=== PATIENT | male | born 1955 | race Caucasian/White ===

== ENCOUNTER 2021-08-18 12:33 | Emergency (ER) | payer BC ==
[2021-08-18] MEDS ORDERED: Zofran 4 MG/2 ML VIAL IV ONE (12:57)
[2021-08-18] MEDS ORDERED: MORPHINE SULFATE 4 MG INJ IV ONE (12:57)
[2021-08-18] MEDS ORDERED: Zofran 4 MG/2 ML VIAL ONE (13:15)
[2021-08-18] MEDS ORDERED: MORPHINE SULFATE 4 MG INJ ONE (13:16)
[2021-08-18 13:21] LABS: Absolute Neutrophil Ct (ANC) 4.14 (1.4-6.9); Basophil (Absolute #) 0.02 (0-0.4); Eosinophil % 2.3 % (0.00-5.0); Eosinophil (Absolute #) 0.17 (0-0.5); Hemoglobin 14.9 gm/dl (12.5-18.0); Lymphocyte (Absolute #) 2.25 (1.0-4.6); Lymphocytes % 30.9 % (24.0-44.0); Mean Cell Volume 89.5 fl (78-100); Mean Corpuscular Hemoglobin 29.6 pg (26-32); Mean Corpuscular Hgb Concent. 33.1 g/dl (32-36); Mean Platelet Volume 10.6 fl (7.5-11.0); Monocyte (Absolute #) 0.69 (0.0-1.3); Monocytes % 9.5 % (0.0-12.0); Platelet Count 324 K/mm3 (150-450); Red Blood Count 5.03 M/mm3 (4.1-5.6); Red Cell Distribution Width 13.4 % (11.5-14.0); White Blood Count 7.3 K/mm3 (4.0-10.5)
[2021-08-18 13:42] LABS: ALBUMIN 4.1 g/dL (3.5-5.0); ALKALINE PHOSPHATASE 72 U/L (38-126); ANION GAP 12.1 MEQ/L (5-15); BLOOD UREA NITROGEN 23 mg/dL (9-20); CHLORIDE 105 mmol/L (98-107); CK-Creatinine Phosphokinase 46 U/L (55-170); Calcium 9.3 mg/dL (8.4-10.2); Carbon Dioxide 24 mmol/L (22-30); Creatinine 1 0.94 mg/dL (0.66-1.25); EST GLOMERULAR FILTRATION RATE > 60.0 ML/MIN; Glucose 97 mg/dL (74-106); NT PRO BNP 47.2 pg/mL (0-900); Potassium 4.5 mmol/L (3.5-5.1); SGOT/AST 33 U/L (17-59); SGPT/ALT 23 U/L (0-50); SODIUM 137 mmol/L (137-145)
[2021-08-18] MEDS ORDERED: TYLENOL EXTRA STRENGTH 500 MG ONE (14:16)
[2021-08-18] MEDS ORDERED: TYLENOL EXTRA STRENGTH 500 MG PO STA (14:17)
--- NOTE | 2021-08-18 15:09 | ERPHSYRPT ---
- History of Present Illness Time Seen by Provider: 08/18/21 12:35 Historian: patient Exam Limitations: no limitations Patient Subjective Stated Complaint: pt reports sharp right side rib pain starting on 08/13/21 reports 08/12 he got his covid booster and the next day is when his pain started. reports pain is worse when he takes a deep breath, pt denies any injury or accident. Triage Nursing Assessment: pt is aox3, pupils perrl, afebrile, pt is short of breath at rest, pt appears anxious, pt lung sounds diminished bilat, especially to the right mid and upper lung marshall posteriorly, upon visual inspection of the back there appears to be some swelling to the right lateral posterior mid rib area, skin is soft with palpation, pt radial pulses strong and equal, cap refill < 3 seconds, pt skin pink warm dry. Physician History: 66 years old male with history of tobacco abuse, COPD presented in the ER with chief complaint of right lateral chest wall/rib pain for the last 5 days. Patient reports he received booster shot of COVID-19 and next morning woke up with not feeling well and felt pain on the right chest off-and-on, intermittent, will moderate to severe intensity, lasting for a few seconds to 15 minutes, more with deep breathing and moving in a certain position with minimal shortness of breath at times. No fever or chills reported. Timing/Duration: day(s) (5), intermittent, gradual onset, worse Activities at Onset: rest Quality: sharpness Location: other (Right lateral chest wall) Chest Pain Radiation: no radiation Severity of Pain-Max: moderate Severity of Pain-Current: mild Associated Symptoms: No palpitations, No heartburn, No shortness of breath Prior Chest Pain/Cardiac Workup: no prior chest pain, no prior cardiac workup Nitro Today/Relief: no nitro taken today Aspirin Treatment Today: no aspirin today Allergies/Adverse Reactions: alcohol Allergy (Mild, Verified 08/18/21 12:53) black out- pancreatitis- very ill codeine Allergy (Verified 08/18/21 12:53) itching, swelling, very irritated Home Medications: Tamsulosin HCl 0.4 mg [Flomax 0.4 MG] 0.4 mg PO DAILY 04/09/16 [History] Hx Tetanus, Diphtheria Vaccination/Date Given: Yes Hx Influenza Vaccination/Date Given: No Hx Pneumococcal Vaccination/Date Given: No Immunizations Up to Date: Yes Travel Risk - International Travel Have you traveled outside of the country in past 3 weeks: No - Coronavirus Screening Symptoms: Shortness of Breath Close contact with a COVID-19 positive Pt in past 14-21 Days: No - Vaccine Status Have you recieved a Covid-19 vaccination: Yes Trophy Assembler: Moderna - Vaccination Dates Date of 2cond Vaccination (if applicable): unk - Review of Systems Constitutional: No Symptoms Eyes: No Symptoms Ears, Nose, & Throat: No Symptoms Respiratory: Cough Cardiac: Chest Pain Abdominal/Gastrointestinal: No Symptoms Genitourinary Symptoms: No Symptoms Musculoskeletal: No Symptoms Skin: No Symptoms Neurological: No Symptoms Psychological: No Symptoms Endocrine: No Symptoms Hematologic/Lymphatic: No Symptoms Immunological/Allergic: No Symptoms - Past Medical History Pertinent Past Medical History: Yes Neurological History: No Pertinent History ENT History: No Pertinent History Cardiac History: No Pertinent History Respiratory History: No Pertinent History Endocrine Medical History: No Pertinent History Musculoskeletal History: No Pertinent History GI Medical History: No Pertinent History History: No Pertinent History Psycho-Social History: No Pertinent History Male Reproductive Disorders: Prostate Problems, Other Other Medical History: prostate issues - Past Surgical History Past Surgical History: No Neuro Surgical History: No Pertinent History Cardiac: No Pertinent History Respiratory: No Pertinent History Gastrointestinal: No Pertinent History Genitourinary: No Pertinent History Musculoskeletal: No Pertinent History Male Surgical History: No Pertinent History - Social History Smoking Status: Current every day smoker How long have you smoked: 45 years Exposure to second hand smoke: No Drug Use: none Patient Lives Alone: No - Nursing Vital Signs Nursing Vital Signs: Initial Vital Signs Temperature 97.7 F 08/18/21 12:39 Pulse Rate 71 08/18/21 12:39 Respiratory Rate 22 08/18/21 12:39 Blood Pressure 182/112 08/18/21 12:39 O2 Sat by Pulse Oximetry 99 08/18/21 12:39 Pain Scale Pain Intensity 4 - Physical Exam General Appearance: no apparent distress, alert Eye Exam: PERRL/EOMI Ears, Nose, Throat Exam: normal ENT inspection, TMs normal Neck Exam: normal inspection, non-tender, supple, full range of motion Respiratory Exam: diminished breath sounds Cardiovascular Exam: regular rate/rhythm, normal heart sounds, other (Right mid lateral chest wall tenderness with no crepitus.) Back Exam: normal inspection, normal range of motion Extremity Exam: normal inspection, normal range of motion Neurologic Exam: alert, oriented x 3, cooperative SpO2 Interpretation: normal SpO2: 96 O2 Delivery: Room Air - Course EKG Interpreted by Me: RATE ([id number]), Sinus Rhythm, NORMAL AXIS, NORMAL INTERVALS, NORMAL QRS Ordered Tests: Active Orders 24 hr Category Date Time Status Product Development Assistant STAT Care 08/18/21 12:58 Active EKG-ER Only STAT Care 08/18/21 12:57 Active IV Insertion STAT Care 08/18/21 12:57 Active CHEST WITH CONTRAST [CT] Stat Exams 08/18/21 14:31 Taken CBC W DIFF Stat Lab 08/18/21 13:18 Completed CK-Creatinine Phosphokinase Stat Lab 08/18/21 13:18 Completed CMP Stat Lab 08/18/21 13:18 Completed Lactic Acid Stat Lab 08/18/21 12:59 Completed MAG [MAGNESIUM] Stat Lab 08/18/21 13:18 Completed NT PRO BNP Stat Lab 08/18/21 13:18 Completed TROPONIN Q3H Lab 08/18/21 13:18 Completed TROPONIN Q3H Lab 08/18/21 16:00 Ordered TROPONIN Q3H Lab 08/18/21 19:00 Ordered TROPONIN Q3H Lab 08/18/21 22:00 Ordered TROPONIN Q3H Lab 08/19/21 01:00 Ordered Medication Summary Discontinued Medications Generic Name Dose Route Start Last Admin Trade Name Dangelo PRN Reason Stop Dose Admin Acetaminophen 1,000 mg 08/18/21 14:17 08/18/21 14:17 Acetaminophen 500 Mg Tablet PO 08/18/21 14:18 1,000 mg STAT STA Administration Acetaminophen Confirm 08/18/21 14:16 Acetaminophen 500 Mg Tablet Administered 08/18/21 14:17 Dose 1,000 mg .ROUTE .STK-MED ONE Morphine Sulfate 4 mg 08/18/21 12:57 08/18/21 13:20 Morphine Sulfate 4 Mg/Ml Injection IV 08/18/21 12:58 Not Given STAT ONE Morphine Sulfate Confirm 08/18/21 13:16 Morphine Sulfate 4 Mg/Ml Injection Administered 08/18/21 13:17 Dose 4 mg .ROUTE .STK-MED ONE Ondansetron HCl 4 mg 08/18/21 12:57 08/18/21 13:20 Ondansetron Hcl 4 Mg/2 Ml Vial IV 08/18/21 12:58 Not Given STAT ONE Ondansetron HCl Confirm 08/18/21 13:15 Ondansetron Hcl 4 Mg/2 Ml Vial Administered 08/18/21 13:16 Dose 4 mg .ROUTE .STK-MED ONE Lab/Rad Data: Laboratory Result Diagrams 08/18/21 13:18 08/18/21 13:18 Laboratory Results 08/18/21 08/18/21 08/18/21 Range/Units 13:18 13:18 13:18 WBC (4.0-10.5) K/mm3 RBC (4.1-5.6) M/mm3 Hgb (12.5-18.0) gm/dl Hct (42-50) % MCV (78-100) fl MCH (26-32) pg MCHC (32-36) g/dl RDW (11.5-14.0) % Plt Count (150-450) K/mm3 MPV (7.5-11.0) fl Gran % (36.0-66.0) % Eos # (Auto) (0-0.5) Absolute Lymphs (auto) (1.0-4.6) Absolute Monos (auto) (0.0-1.3) Lymphocytes % (24.0-44.0) % Monocytes % (0.0-12.0) % Eosinophils % (0.00-5.0) % Basophils % (0.0-0.4) % Absolute Granulocytes (1.4-6.9) Basophils # (0-0.4) Sodium 137 (137-145) mmol/L Potassium 4.5 (3.5-5.1) mmol/L Chloride 105 (98-107) mmol/L Carbon Dioxide 24 (22-30) mmol/L Anion Gap 12.1 (5-15) MEQ/L BUN 23 H (9-20) mg/dL Creatinine 0.94 (0.66-1.25) mg/dL Estimated GFR > 60.0 ML/MIN Glucose 97 (74-106) mg/dL Lactic Acid (0.4-2.0) Calcium 9.3 (8.4-10.2) mg/dL Magnesium 2.0 (1.6-2.3) mg/dL Total Bilirubin 0.80 (0.2-1.3) mg/dL AST 33 (17-59) U/L ALT 23 (0-50) U/L Alkaline Phosphatase 72 (38-126) U/L Creatine Kinase 46 L (55-170) U/L Troponin I < 0.012 (0.000-0.034) ng/mL NT-Pro-B Natriuret Pep 47.2 (0-900) pg/mL Serum Total Protein 7.0 (6.3-8.2) g/dL Albumin 4.1 (3.5-5.0) g/dL 08/18/21 08/18/21 Range/Units 13:18 12:59 WBC 7.3 (4.0-10.5) K/mm3 RBC 5.03 (4.1-5.6) M/mm3 Hgb 14.9 (12.5-18.0) gm/dl Hct 45.0 (42-50) % MCV 89.5 (78-100) fl MCH 29.6 (26-32) pg MCHC 33.1 (32-36) g/dl RDW 13.4 (11.5-14.0) % Plt Count 324 (150-450) K/mm3 MPV 10.6 (7.5-11.0) fl Gran % 57.0 (36.0-66.0) % Eos # (Auto) 0.17 (0-0.5) Absolute Lymphs (auto) 2.25 (1.0-4.6) Absolute Monos (auto) 0.69 (0.0-1.3) Lymphocytes % 30.9 (24.0-44.0) % Monocytes % 9.5 (0.0-12.0) % Eosinophils % 2.3 (0.00-5.0) % Basophils % 0.3 (0.0-0.4) % Absolute Granulocytes 4.14 (1.4-6.9) Basophils # 0.02 (0-0.4) Sodium (137-145) mmol/L Potassium (3.5-5.1) mmol/L Chloride (98-107) mmol/L Carbon Dioxide (22-30) mmol/L Anion Gap (5-15) MEQ/L BUN (9-20) mg/dL Creatinine (0.66-1.25) mg/dL Estimated GFR ML/MIN Glucose (74-106) mg/dL Lactic Acid 1.2 (0.4-2.0) Calcium (8.4-10.2) mg/dL Magnesium (1.6-2.3) mg/dL Total Bilirubin (0.2-1.3) mg/dL AST (17-59) U/L ALT (0-50) U/L Alkaline Phosphatase (38-126) U/L Creatine Kinase (55-170) U/L Troponin I (0.000-0.034) ng/mL NT-Pro-B Natriuret Pep (0-900) pg/mL Serum Total Protein (6.3-8.2) g/dL Albumin (3.5-5.0) g/dL - Progress Progress: improved Air Movement: good Progress Note: 08/18/21 16:12 He is given symptomatic treatment pain after breathing treatment, on reevaluation feeling better. Patient is maintaining oxygen saturation at room air around 97%. Not in any distress at all. Does have some wheezing which is part of the COPD and smoking. Has normal white count, grossly unremarkable chemistries and I have obtained CTA chest which is negative. Patient pain is more on the right lateral chest wall area/lung, does not seem cardiac in nature at all and do not think needs second troponin or any other work-up. Do not know the exact cause of his pain, could be pleuritic/musculoskeletal. Recommended Tylenol ibuprofen and recommended outpatient follow-up. Discussed signs s ymptoms of worsening needing return to ER which he seems understanding. Blood Culture(s) Obtained: No Antibiotics given: No Counseled pt/family regarding: lab results, diagnosis, need for follow-up, rad results - Departure Departure Disposition: Home Clinical Impression: Right-sided chest pain Condition: Stable Critical Care Time: No Referrals: LENNOX GRAVES MD [Primary Care Provider] - Follow up/PCP as directed (In 2 days for reevaluation) Instructions: Bruised Rib Additional Instructions: Take Tylenol/ibuprofen as needed. Do not smoke. Use inhaler as needed. Follow-up with primary care for reevaluation. Return to ER for worsening pain or if having difficulty breathing etc. Prescriptions: Albuterol 8 gm Mdi Hfa [Ventolin Hfa MDI] 8 gm IH Q4H #1 inh
[2021-08-18 16:27] VITALS: BP 136/80; PULSE 74; O2SAT 99
--- NOTE | 2021-08-18 18:37 | XRAY ---
Indication: Short of breath and chest pain following Covid 19 vaccination. Multiple contiguous axial images obtained through the chest using 80 cc Isovue 370 contrast and PE protocol. Comparison: None There is good opacification of the pulmonary arteries to include the lobar and segmental branches. No pulmonary embolus. Heart not enlarged. Aorta is minimally arteriosclerotic without aneurysm/dissection. Tiny right hilar and subcarinal calcified nodes. No pathologic mediastinal/hilar lymphadenopathy. Lungs demonstrates moderate diffuse pulmonary emphysema with scattered tiny bilateral calcified granulomas as scattered peripheral fibrosis/scarring. No infiltrate, consolidation, or effusion. Bony thorax intact with minimal degenerative changes throughout the spine.. Limited upper abdomen unremarkable. Impression: 1. Negative pulmonary embolus. No acute cardiopulmonary abnormalities. 2. Pulmonary emphysema, scattered fibrosis/scarring, and old granulomatous disease. Comment: Preliminary interpretation made by C. No critical discrepancy.
== END 2021-08-18 16:26 | disposition home or self-care (01) ==
LOC: ED 12:33
DX: R07.89 Other chest pain (principal); J44.9 Chronic obstructive pulmonary disease, unspecified; Z72.0 Tobacco use
CPT/HCPCS: 36000; 36415; 71260; 80053; 82550; 83605; 83735; 83880; 84484; 85025; 93005; 93041; 99284; J2270; J2405; A9270-GY

== ENCOUNTER 2023-05-27 11:55 | Emergency (ER) | payer BC, MEDICARE ==
[2023-05-27 12:25] VITALS: TEMP 98.4
[2023-05-27 13:48] LABS: Absolute Neutrophil Ct (ANC) 6.88 x10^3/uL (1.4-6.9); BASOPHIL % 0.8 % (0.0-0.4); Basophil (Absolute #) 0.07 x10^3/uL (0-0.4); Eosinophil (Absolute #) 0 x10^3/uL (0-0.5); Hematocrit 43.2 % (42-50); Hemoglobin 14.3 g/dL (12.5-18.0); IMMATURE GRAN # 0.02 x10^3u/L (0.00-0.03); IMMATURE GRAN % 0.2 % (0.00-0.4); Lymphocyte (Absolute #) 1.08 x10^3/uL (1.0-4.6); Lymphocytes % 12.7 % (24.0-44.0); Mean Cell Volume 90.2 fL (78-100); Mean Corpuscular Hemoglobin 29.9 pg (26-32); Mean Corpuscular Hgb Concent. 33.1 g/dL (32-36); Mean Platelet Volume 10.1 fL (7.5-11.0); Monocyte (Absolute #) 0.44 x10^3/uL (0.0-1.3); Monocytes % 5.2 % (0.0-12.0); Neutrophil % 81.1 % (36.0-66.0); Platelet Count 318 x10^3/uL (150-450); Red Blood Count 4.79 x10^6/uL (4.1-5.6); Red Cell Distribution Width 12.9 % (11.5-14.0); White Blood Count 8.5 x10^3/uL (4.0-10.5)
[2023-05-27 14:00] LABS: ALBUMIN 4.6 g/dL (3.5-5.0); ALKALINE PHOSPHATASE 76 U/L (38-126); ANION GAP 14.3 MEQ/L (5-15); BLOOD UREA NITROGEN 18 mg/dL (9-20); CHLORIDE 104 mmol/L (98-107); Calcium 9.6 mg/dL (8.4-10.2); Carbon Dioxide 29 mmol/L (22-30); Creatinine 1 0.96 mg/dL (0.66-1.25); EST GLOMERULAR FILTRATION RATE > 60.0 ML/MIN; Glucose 98 mg/dL (74-106); Potassium 4.3 mmol/L (3.5-5.1); SGOT/AST 32 U/L (17-59); SGPT/ALT 22 U/L (0-50); SODIUM 143 mmol/L (137-145)
[2023-05-27 14:25] LABS: Slide Review 1 YES
[2023-05-27 15:04] LABS: Appearance Cloudy (Clear); Bacteria None Seen /HPF (None Seen); Bilirubin Negative (Negative); Blood Negative (Negative); Epithelial Cells None Seen /HPF (None Seen); Glucose, Urine Negative (Negative); Hyaline Casts NONE SEEN /LPF (0-2); Ketones Negative (Negative); Leukocyte Esterase Negative (Negative); Nitrite Negative (Negative); Protein,Urine Dip 30 (Negative); Urobilinogen 0.2 mg/dL (0.2); WBC 0-2 /HPF (0-5)
[2023-05-27 15:10] LABS: ADD URINE CULTURE? NO (NO)
--- NOTE | 2023-05-27 15:24 | ERPHSYRPT ---
- History of Present Illness Time Seen by Provider: 05/27/23 12:40 Source: patient Exam Limitations: no limitations Patient Subjective Stated Complaint: pt states that he feels like the hulk. pt states that he feels like his PSA is elevated Triage Nursing Assessment: pt ambulated into the er; pt is axo x4; pt is shaking and anxious; pt denies any issues with urination; pt denies back or abd pain; active bowel sounds; c/o nausea; no respiratory distress present; skin PDW; hypertensive Physician History: Patient is a 68-year-old male presents to our ED for evaluation of feeling like the incredible Hulk patient states he feels as though his body is going to explode. Patient denies pain. Patient states he has had the symptoms in the past. Patient correlates the symptoms with elevated PSA. No associated chest pain or shortness of breath. No nausea vomiting or diaphoresis. Patient also reports that he fell 3 weeks ago and hit his head. Patient states this preceded patient's current symptomology. Portions of this note were created with voice recognition technology. There may be grammatical, spelling, punctuation or sound alike errors Timing/Duration: today Severity: moderate Associated Symptoms: denies symptoms Allergies/Adverse Reactions: alcohol Allergy (Mild, Verified 05/27/23 12:17) black out- pancreatitis- very ill codeine Allergy (Verified 05/27/23 12:17) itching, swelling, very irritated Home Medications: Tamsulosin HCl 0.4 mg [Flomax 0.4 MG] 0.4 mg PO HS 04/09/16 [History] Finasteride 5 mg [Proscar 5 MG] 5 mg PO DAILY 05/27/23 [History] Hx Tetanus, Diphtheria Vaccination/Date Given: Yes Hx Influenza Vaccination/Date Given: No Hx Pneumococcal Vaccination/Date Given: No Travel Risk - International Travel Have you traveled outside of the country in past 3 weeks: No - Coronavirus Screening Are you exhibiting any of the following symptoms?: No Close contact with a COVID-19 positive Pt in past 14-21 Days: No - Vaccine Status Have you recieved a Covid-19 vaccination: Yes [employer]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 - Vaccination Dates Date of 2cond Vaccination (if applicable): unk - Review of Systems Constitutional: No Symptoms, No Fever, No Chills Eyes: No Symptoms Ears, Nose, & Throat: No Symptoms Respiratory: No Symptoms, No Cough, No Dyspnea Cardiac: No Symptoms, No Chest Pain, No Edema, No Syncope Abdominal/Gastrointestinal: No Symptoms, No Abdominal Pain, No Nausea, No Vo miting, No Diarrhea Genitourinary Symptoms: No Symptoms, No Dysuria Musculoskeletal: No Symptoms, No Back Pain, No Neck Pain Skin: No Symptoms, No Rash Neurological: No Symptoms, No Dizziness, No Focal Weakness, No Sensory Changes Psychological: No Symptoms Endocrine: No Symptoms Hematologic/Lymphatic: No Symptoms Immunological/Allergic: No Symptoms All Other Systems: Reviewed and Negative - Past Medical History Pertinent Past Medical History: Yes Neurological History: No Pertinent History ENT History: No Pertinent History Cardiac History: No Pertinent History Respiratory History: No Pertinent History Endocrine Medical History: No Pertinent History Musculoskeletal History: No Pertinent History GI Medical History: No Pertinent History History: No Pertinent History Psycho-Social History: Depression Male Reproductive Disorders: Prostate Problems, Other Other Medical History: prostate issues - Past Surgical History Past Surgical History: No Neuro Surgical History: No Pertinent History Cardiac: No Pertinent History Respiratory: No Pertinent History Gastrointestinal: No Pertinent History Genitourinary: No Pertinent History Musculoskeletal: No Pertinent History Male Surgical History: No Pertinent History - Social History Smoking Status: Current every day smoker How long have you smoked: 45 years Exposure to second hand smoke: No Drug Use: none Patient Lives Alone: No - Nursing Vital Signs Nursing Vital Signs: Initial Vital Signs Temperature 98.4 F 05/27/23 12:19 Pulse Rate 78 05/27/23 12:19 Respiratory Rate 20 05/27/23 12:19 Blood Pressure 179/61 05/27/23 12:19 O2 Sat by Pulse Oximetry 99 05/27/23 12:19 Pain Scale Pain Intensity 0 - Physical Exam General Appearance: no apparent distress, alert Eye Exam: PERRL/EOMI, eyes nml inspection Ears, Nose, Throat Exam: normal ENT inspection, TMs normal, pharynx normal, moist mucous membranes Neck Exam: normal inspection, non-tender, supple, full range of motion Respiratory Exam: normal breath sounds, lungs clear, No respiratory distress Cardiovascular Exam: regular rate/rhythm, normal heart sounds, normal peripheral pulses Gastrointestinal/Abdomen Exam: soft, normal bowel sounds, No tenderness, No mass Back Exam: normal inspection, normal range of motion, No CVA tenderness, No girish tebral tenderness Extremity Exam: normal inspection, normal range of motion, pelvis stable Neurologic Exam: alert, oriented x 3, cooperative, normal mood/affect, nml cerebellar function, nml station & gait, sensation nml, No motor deficits Skin Exam: normal color, warm, dry, No rash Lymphatic Exam: No adenopathy SpO2 Interpretation: normal SpO2: 97 O2 Delivery: Room Air - Course Nursing assessment & vital signs reviewed: Yes EKG Interpreted by Me: RATE, Sinus Rhythm, NORMAL AXIS, NORMAL INTERVALS - CT Exams Head CT Interpretation: Tele-radiologist Report (No acute intracranial pathology) Chest CT Interpretation: Tele-radiologist Report (Negative for PE.) Ordered Tests: Active Orders 24 hr Category Date Time Status Steward/Stewardess Second Class STAT Care 05/27/23 13:28 Active EKG-ER Only STAT Care 05/27/23 13:28 Active IV Insertion STAT Care 05/27/23 13:28 Active Pulse Oximetry (ED) STAT Care 05/27/23 13:28 Active CHEST WITH CONTRAST [CT] Stat Exams 05/27/23 15:33 Completed HEAD WITHOUT CONTRAST [CT] Stat Exams 05/27/23 15:33 Completed CBC W DIFF Stat Lab 05/27/23 13:40 Completed CMP Stat Lab 05/27/23 13:40 Completed D-DIMER QUANTITATIVE Stat Lab 05/27/23 13:40 Completed Lactic Acid Stat Lab 05/27/23 13:40 Completed MAGNESIUM Stat Lab 05/27/23 13:40 Completed Prostate Spec.Ag,Diagnostic Stat Lab 05/27/23 13:40 Completed TROPONIN Q4H Lab 05/27/23 13:40 Completed TROPONIN Q4H Lab 05/27/23 17:10 Received TROPONIN Q4H Lab 05/27/23 21:30 Ordered UA W/RFX UR CULTURE Stat Lab 05/27/23 14:30 Completed Lab/Rad Data: Laboratory Result Diagrams 05/27/23 13:40 05/27/23 13:40 Laboratory Results 05/27/23 05/27/23 05/27/23 Range/Units 14:30 13:40 13:40 WBC (4.0-10.5) x10^3/uL RBC (4.1-5.6) x10^6/uL Hgb (12.5-18.0) g/dL Hct (42-50) % MCV (78-100) fL MCH (26-32) pg MCHC (32-36) g/dL RDW (11.5-14.0) % Plt Count (150-450) x10^3/uL MPV (7.5-11.0) fL Gran % (36.0-66.0) % Immature Gran % (Auto) (0.00-0.4) % Nucleat RBC Rel Count (0.00-0.1) % Eos # (Auto) (0-0.5) x10^3/uL Immature Gran # (Auto) (0.00-0.03) x10^3u/L Absolute Lymphs (auto) (1.0-4.6) x10^3/uL Absolute Monos (auto) (0.0-1.3) x10^3/uL Absolute Nucleated RBC (0.00-0.01) x10^3u/L Lymphocytes % (24.0-44.0) % Monocytes % (0.0-12.0) % Eosinophils % (0.00-5.0) % Basophils % (0.0-0.4) % Absolute Granulocytes (1.4-6.9) x10^3/uL Basophils # (0-0.4) x10^3/uL D-Dimer (0.0-0.50) mg/L Sodium (137-145) mmol/L Potassium (3.5-5.1) mmol/L Chloride (98-107) mmol/L Carbon Dioxide (22-30) mmol/L Anion Gap (5-15) MEQ/L BUN (9-20) mg/dL Creatinine (0.66-1.25) mg/dL Estimated GFR ML/MIN Glucose (74-106) mg/dL Lactic Acid (0.4-2.0) Calcium (8.4-10.2) mg/dL Magnesium (1.6-2.3) mg/dL Total Bilirubin (0.2-1.3) mg/dL AST (17-59) U/L ALT (0-50) U/L Alkaline Phosphatase (38-126) U/L Troponin I < 0.012 (0.000-0.034) ng/mL Serum Total Protein (6.3-8.2) g/dL Albumin (3.5-5.0) g/dL PSA Diagnostic 6.720 H (0-4) ng/mL Urine Color Yellow (Yellow) Urine Appearance Cloudy A (Clear) Urine pH 8.0 (4.6-8.0) Ur Specific [place] 1.020 (1.005-1.030) Urine Protein 30 (Negative) Urine Glucose (UA) Negative (Negative) mg/dL Urine Ketones Negative (Negative) Urine Blood Negative (Negative) Urine Nitrite Negative (Negative) Urine Bilirubin Negative (Negative) Urine Urobilinogen 0.2 (0.2) mg/dL Ur Leukocyte Esterase Negative (Negative) U Hyaline Cast (Auto) NONE SEEN (0-2) /LPF Urine Microscopic RBC 3-5 (0-5) /HPF Urine Microscopic WBC 0-2 (0-5) /HPF Ur Epithelial Cells None Seen (None Seen) /HPF Urine Bacteria None Seen (None Seen) /HPF Urine Culture Reflexed NO (NO) Slides for Path Review 05/27/23 05/27/23 05/27/23 Range/Units 13:40 13:40 13:40 WBC (4.0-10.5) x10^3/uL RBC (4.1-5.6) x10^6/uL Hgb (12.5-18.0) g/dL Hct (42-50) % MCV (78-100) fL MCH (26-32) pg MCHC (32-36) g/dL RDW (11.5-14.0) % Plt Count (150-450) x10^3/uL MPV (7.5-11.0) fL Gran % (36.0-66.0) % Immature Gran % (Auto) (0.00-0.4) % Nucleat RBC Rel Count (0.00-0.1) % Eos # (Auto) (0-0.5) x10^3/uL Immature Gran # (Auto) (0.00-0.03) x10^3u/L Absolute Lymphs (auto) (1.0-4.6) x10^3/uL Absolute Monos (auto) (0.0-1.3) x10^3/uL Absolute Nucleated RBC (0.00-0.01) x10^3u/L Lymphocytes % (24.0-44.0) % Monocytes % (0.0-12.0) % Eosinophils % (0.00-5.0) % Basophils % (0.0-0.4) % Absolute Granulocytes (1.4-6.9) x10^3/uL Basophils # (0-0.4) x10^3/uL D-Dimer 0.82 H* (0.0-0.50) mg/L Sodium 143 (137-145) mmol/L Potassium 4.3 (3.5-5.1) mmol/L Chloride 104 (98-107) mmol/L Carbon Dioxide 29 (22-30) mmol/L Anion Gap 14.3 (5-15) MEQ/L BUN 18 (9-20) mg/dL Creatinine 0.96 (0.66-1.25) mg/dL Estimated GFR > 60.0 ML/MIN Glucose 98 (74-106) mg/dL Lactic Acid 1.2 (0.4-2.0) Calcium 9.6 (8.4-10.2) mg/dL Magnesium 2.0 (1.6-2.3) mg/dL Total Bilirubin 0.60 (0.2-1.3) mg/dL AST 32 (17-59) U/L ALT 22 (0-50) U/L Alkaline Phosphatase 76 (38-126) U/L Troponin I (0.000-0.034) ng/mL Serum Total Protein 8.0 (6.3-8.2) g/dL Albumin 4.6 (3.5-5.0) g/dL PSA Diagnostic (0-4) ng/mL Urine Color (Yellow) Urine Appearance (Clear) Urine pH (4.6-8.0) Ur Specific [place] (1.005-1.030) Urine Protein (Negative) Urine Glucose (UA) (Negative) mg/dL Urine Ketones (Negative) Urine Blood (Negative) Urine Nitrite (Negative) Urine Bilirubin (Negative) Urine Urobilinogen (0.2) mg/dL Ur Leukocyte Esterase (Negative) U Hyaline Cast (Auto) (0-2) /LPF Urine Microscopic RBC (0-5) /HPF Urine Microscopic WBC (0-5) /HPF Ur Epithelial Cells (None Seen) /HPF Urine Bacteria (None Seen) /HPF Urine Culture Reflexed (NO) Slides for Path Review 05/27/23 Range/Units 13:40 WBC 8.5 (4.0-10.5) x10^3/uL RBC 4.79 (4.1-5.6) x10^6/uL Hgb 14.3 (12.5-18.0) g/dL Hct 43.2 (42-50) % MCV 90.2 (78-100) fL MCH 29.9 (26-32) pg MCHC 33.1 (32-36) g/dL RDW 12.9 (11.5-14.0) % Plt Count 318 (150-450) x10^3/uL MPV 10.1 (7.5-11.0) fL Gran % 81.1 H (36.0-66.0) % Immature Gran % (Auto) 0.2 (0.00-0.4) % Nucleat RBC Rel Count 0.0 (0.00-0.1) % Eos # (Auto) 0 (0-0.5) x10^3/uL Immature Gran # (Auto) 0.02 (0.00-0.03) x10^3u/L Absolute Lymphs (auto) 1.08 (1.0-4.6) x10^3/uL Absolute Monos (auto) 0.44 (0.0-1.3) x10^3/uL Absolute Nucleated RBC 0.00 (0.00-0.01) x10^3u/L Lymphocytes % 12.7 L (24.0-44.0) % Monocytes % 5.2 (0.0-12.0) % Eosinophils % 0.0 (0.00-5.0) % Basophils % 0.8 (0.0-0.4) % Absolute Granulocytes 6.88 (1.4-6.9) x10^3/uL Basophils # 0.07 (0-0.4) x10^3/uL D-Dimer (0.0-0.50) mg/L Sodium (137-145) mmol/L Potassium (3.5-5.1) mmol/L Chloride (98-107) mmol/L Carbon Dioxide (22-30) mmol/L Anion Gap (5-15) MEQ/L BUN (9-20) mg/dL Creatinine (0.66-1.25) mg/dL Estimated GFR ML/MIN Glucose (74-106) mg/dL Lactic Acid (0.4-2.0) Calcium (8.4-10.2) mg/dL Magnesium (1.6-2.3) mg/dL Total Bilirubin (0.2-1.3) mg/dL AST (17-59) U/L ALT (0-50) U/L Alkaline Phosphatase (38-126) U/L Troponin I (0.000-0.034) ng/mL Serum Total Protein (6.3-8.2) g/dL Albumin (3.5-5.0) g/dL PSA Diagnostic (0-4) ng/mL Urine Color (Yellow) Urine Appearance (Clear) Urine pH (4.6-8.0) Ur Specific [place] (1.005-1.030) Urine Protein (Negative) Urine Glucose (UA) (Negative) mg/dL Urine Ketones (Negative) Urine Blood (Negative) Urine Nitrite (Negative) Urine Bilirubin (Negative) Urine Urobilinogen (0.2) mg/dL Ur Leukocyte Esterase (Negative) U Hyaline Cast (Auto) (0-2) /LPF Urine Microscopic RBC (0-5) /HPF Urine Microscopic WBC (0-5) /HPF Ur Epithelial Cells (None Seen) /HPF Urine Bacteria (None Seen) /HPF Urine Culture Reflexed (NO) Slides for Path Review YES - Progress Progress: improved Progress Note: Patient is a 68-year-old male presents to our ED with sensation of pressure acutely running through his body. The symptoms spontaneously resolved. Physical exam nonremarkable. However patient does appear somewhat anxious. EKG is normal sinus rhythm. CBC CMP negative. D-dimer positive. CTA chest negative for PE. No acute findings on today's CAT scan. Patient advised that he had hit his head about 3 weeks ago and this correlates with the time that patient first experienced his symptomology. CT head negative for acute intracranial pathology. Lactic acid negative. PSA elevated 6.72. PSA ordered per patient's request. Troponin negative x2. Urinalysis negative. Testing in our ED is essentially nonremarkable. However our testing is limited to the scope of a typical ED. Patient may require additional testing as an outpatient specifically to look for possible pheochromocytoma. We discussed this po ssibility with patient and . They will follow-up with her primary care doctor for further evaluation and treatment. Portions of this note were created with voice recognition technology. There may be grammatical, spelling, punctuation or sound alike errors Complexity of problems addressed is moderate. No critical care time Complex of data reviewed and analyzed is moderate. Test ordered test reviewed. Laboratory and imaging findings analyzed. Clinical correlation made between findings and history and physical exam. Risk of complication and or risk of morbidity/mortality of patient management is low. We will discharge home. Vital stable. A definitive diagnosis has not been rendered. However based on her testing there is no life-threatening findings Observed on today's work-up and history and physical. Time spent to discharge patient approximately 15 minutes. Plan of care established for shared decision making No social determinants of health present to impede follow-up.. Portions of this note were created with voice recognition technology. There may be grammatical, spelling, punctuation or sound alike errors 05/27/23 17:29 Counseled pt/family regarding: lab results, diagnosis, need for follow-up, rad results - Departure Departure Disposition: Home Clinical Impression: Elevated PSA, Elevated d-dimer, Pulmonary emphysema, Atherosclerotic cardiovascular disease Condition: Stable Critical Care Time: No Referrals: LENNOX GRAVES MD [Primary Care Provider] - Follow up/PCP as directed Instructions: Chronic Obstructive Pulmonary Disease, Prostate-Specific Antigen Test Additional Instructions: Discharge/Care Plan LUISA IRWIN was seen on 05/27/23 in the Emergency Room. The patient was counseled regarding Diagnosis,Lab results, Imaging studies, need for follow up and when to return to the Emergency Room. Prescriptions given: Discharge Note I have spoken with the patient and/or caregivers. I have explained the patient's condition, diagnosis and treatment plan based on the information available to me at this time. I have answered the patient's and/or caregiver's questions and addressed any concerns. The patient and/or caregivers have as good understanding of the patient's diagnosis, condition and treatment plan as can be expected at this point. The vital signs have been stable. The patient's condition is stable and appropriate for discharge from the emergency department. The patient will pursue further outpatient evaluation with the primary care physician or other designated or consulting physician as outlined in the discharge instructions. The patient and/or caregivers are agreeable to this plan of care and follow-up instructions have been explained in detail. The patient and/or caregivers have received these instruction. The patient/and or caregivers are aware that any significant change in condition or worsening of symptoms should prompt an immediate return to this or the closest emergency department or call 911.
--- NOTE | 2023-05-27 16:24 | XRAY ---
Indication: Syncope. Trauma. Multiple contiguous axial images obtained through the head without contrast. Comparison: September 05, 2015 Normal appearing brain parenchyma, ventricles, and bony calvarium for patient's age. Visualized paranasal sinuses and mastoid air cells are clear. Impression: Continued normal CT head without contrast exam.
--- NOTE | 2023-05-27 16:28 | XRAY ---
Indication: Chest pain. Elevated d-dimer. Multiple contiguous axial images obtained through the chest using 80 cc Isovue 370 contrast and PE protocol. Comparison: August 18, 2021 Good opacification of the pulmonary arteries to include the lobar and segmental branches. No pulmonary embolus. Heart not enlarged. Aorta is normal in course and caliber again with minimal arteriosclerotic calcifications. Stable tiny mediastinal and right hilar calcified nodes. No pathologic mediastinal/hilar lymphadenopathy. Lungs again demonstrates moderate diffuse pulmonary emphysema with scattered tiny bilateral calcified granulomas. No new pulmonary mass/nodule, infiltrate, or effusion. Bony thorax intact again with minimal/mild degenerative changes throughout the spine. Limited upper abdomen unremarkable. Impression: 1. Continued negative pulmonary embolus. No new/acute cardiopulmonary abnormalities. 2. Again chronic findings including pulmonary emphysema, arteriosclerotic disease, degenerative spondylosis, and old granulomatous disease.
[2023-05-27 17:24] VITALS: O2SAT 97
[2023-05-27 17:47] VITALS: BP 143/82; PULSE 60; RESP 18
== END 2023-05-27 17:47 | disposition home or self-care (01) ==
LOC: ED 11:55
DX: R97.20 Elevated prostate specific antigen [PSA] (principal); R79.1 Abnormal coagulation profile; J43.8 Other emphysema; I25.10 Atherosclerotic heart disease of native coronary artery without angina pectoris; Z79.899 Other long term (current) drug therapy; Z72.0 Tobacco use
CPT/HCPCS: 36000; 36415; 70450; 71260; 80053; 81001; 83605; 83735; 84153; 84484; 85025; 85379; 93005; 93041; 94760; 99284

== ENCOUNTER 2024-12-16 10:04 | Observation (INO) | payer MEDICARE ==
--- NOTE | 2024-12-16 10:26 | ERPHSYRPT ---
- History of Present Illness Time Seen by Provider: 12/16/24 10:23 Source: patient Exam Limitations: no limitations Patient Subjective Stated Complaint: pt here for high blood pressure, he states at work he became dizzy so he went to pharmacy and took blood pressure and it was high Triage Nursing Assessment: pt walked in, anxious, shaking at times, resp easy, skin w/d/p. chest clear, resp easy, no edema noted. moves all ext well Physician History: Patient is a 69-year-old male presents to our ED for evaluation of near syncope. 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 Patient states he developed an acute onset headache and became acutely lightheaded. Patient felt as though he was going to pass out. Patient went to the local pharmacy and observed his blood pressure to be 180 systolic. Patient states he was previously on blood pressure medication but has been off for 2 years as his blood pressure has been controlled without the medication. Patient adds that he checked his blood pressure this morning and it was 120 systolic which is his baseline. No associated chest pain or shortness of breath. No nausea vomiting or diaphoresis. Symptoms are moderate in intensity. No specific worsening or improving factors. Patient voices no other complaints or concerns at this time. Portions of this note were created with voice recognition technology. There may be grammatical, spelling, punctuation or sound alike errors Timing/Duration: today Severity: moderate Modifying Factors: Improves With: nothing Associated Symptoms: denies symptoms Allergies/Adverse Reactions: alcohol Allergy (Mild, Verified 12/16/24 10:05) black out- pancreatitis- very ill codeine Allergy (Verified 12/16/24 10:05) itching, swelling, very irritated Home Medications: Tamsulosin HCl 0.4 mg [Flomax 0.4 MG] 0.4 mg PO HS 04/09/16 [History] Finasteride 5 mg [Proscar 5 MG] 5 mg PO DAILY 12/16/24 [History] Rosuvastatin Calcium 40 mg PO DAILY 12/16/24 [History] Hx Tetanus, Diphtheria Vaccination/Date Given: No Hx Influenza Vaccination/Date Given: No Hx Pneumococcal Vaccination/Date Given: No Immunizations Up to Date: Yes Travel Risk - International Travel Have you traveled outside of the country in past 3 weeks: No - Emerging Infectious Disease Are you exhibiting symptoms associated with any current EIDs: No - Review of Systems Constitutional: No Symptoms, No Fever, No Chills Eyes: No Symptoms Ears, Nose, & Throat: No Symptoms Respiratory: No Symptoms, No Cough, No Dyspnea Cardiac: No Symptoms, No Chest Pain, No Edema, No Syncope Abdominal/Gastrointestinal: No Symptoms, No Abdominal Pain, No Nausea, No Vomiting, No Diarrhea Genitourinary Symptoms: No Symptoms, No Dysuria Musculoskeletal: No Symptoms, No Back Pain, No Neck Pain Skin: No Symptoms, No Rash Neurological: No Symptoms, No Dizziness, No Focal Weakness, No Sensory Changes Psychological: No Symptoms Endocrine: No Symptoms Hematologic/Lymphatic: No Symptoms Immunological/Allergic: No Symptoms All Other Systems: Reviewed and Negative - Past Medical History Pertinent Past Medical History: Yes Neurological History: No Pertinent History ENT History: No Pertinent History Cardiac History: No Pertinent History Respiratory History: No Pertinent History Endocrine Medical History: No Pertinent History Musculoskeletal History: No Pertinent History GI Medical History: No Pertinent History History: No Pertinent History Psycho-Social History: Depression Male Reproductive Disorders: Prostate Problems, Other Other Medical History: prostate issues - Past Surgical History Past Surgical History: No Neuro Surgical History: No Pertinent History Cardiac: No Pertinent History Respiratory: No Pertinent History Gastrointestinal: No Pertinent History Genitourinary: No Pertinent History Musculoskeletal: No Pertinent History Male Surgical History: No Pertinent History - Social History Smoking Status: Current every day smoker How long have you smoked: 45 years Exposure to second hand smoke: Yes Drug Use: marijuana - Social Determinants of Health Will the patient participate in the screening: Declined to provide - Nursing Vital Signs Nursing Vital Signs: Initial Vital Signs Pulse Rate 91 H 12/16/24 10:12 Respiratory Rate 27 H 12/16/24 10:12 Blood Pressure 181/88 12/16/24 10:12 O2 Sat by Pulse Oximetry 73 L 12/16/24 10:12 Pain Scale Pain Intensity 0 - Physical Exam General Appearance: no apparent distress, alert Eye Exam: PERRL/EOMI, eyes nml inspection Ears, Nose, Throat Exam: normal ENT inspection, moist mucous membranes Neck Exam: normal inspection, full range of motion Respiratory Exam: normal breath sounds, lungs clear, airway intact, No respiratory distress Cardiovascular Exam: regular rate/rhythm, normal heart sounds, normal peripheral pulses Gastrointestinal/Abdomen Exam: soft, normal bowel sounds, No tenderness, No mass Back Exam: normal inspection, normal range of motion, No CVA tenderness, No vertebral tenderness Extremity Exam: normal inspection, normal range of motion, pelvis stable Neurologic Exam: alert, oriented x 3, cooperative, normal mood/affect, sensation nml, No motor deficits Skin Exam: normal color, warm, dry, No rash Lymphatic Exam: No adenopathy SpO2 Interpretation: normal SpO2: 94 O2 Delivery: Room Air - Course Nursing assessment & vital signs reviewed: Yes EKG Interpreted by Me: RATE (75), Sinus Rhythm, NORMAL AXIS, NORMAL INTERVALS, NORMAL QRS - CT Exams Chest CT Interpretation: Tele-radiologist Report (No PE. Otherwise chronic findings. No acute pathology observed) Ordered Tests: Active Orders 24 hr Category Date Time Status Pulse Oximetry (ED) STAT Care 12/16/24 10:20 Active CHEST WITH CONTRAST [CT] Stat Exams 12/16/24 11:48 Completed HEAD WITHOUT CONTRAST [CT] Stat Exams 12/16/24 10:22 Completed CBC W DIFF Stat Lab 12/16/24 10:27 Completed CMP Stat Lab 12/16/24 10:27 Completed D-DIMER QUANTITATIVE Stat Lab 12/16/24 10:27 Completed NT PRO BNPII Stat Lab 12/16/24 10:27 Completed TROPONIN Q4H Lab 12/16/24 10:27 Completed TROPONIN Q4H Lab 12/16/24 14:30 Ordered TROPONIN Q4H Lab 12/16/24 18:30 Ordered UA W/RFX UR CULTURE Stat Lab 12/16/24 10:37 Completed Urine Triage Profile Stat Lab 12/16/24 10:37 Completed Transfer Order Routine Transfer 12/16/24 Ordered Medication Summary Discontinued Medications Generic Name Dose Route Start Last Admin Trade Name Freq PRN Reason Stop Dose Admin Ketorolac Tromethamine 30 mg 12/16/24 13:57 Ketorolac Tromethamine 30 Mg/Ml Inj IV 12/16/24 13:58 STAT ONE Prochlorperazine Edisylate 10 mg 12/16/24 13:57 Prochlorperazine Edisylate 10 Mg/2 Ml Vial IV 12/16/24 13:58 STAT ONE Lab/Rad Data: Laboratory Result Diagrams 12/16/24 10:27 12/16/24 10:27 Laboratory Results 12/16/24 12/16/24 12/16/24 Range/Units 10:37 10:37 10:27 WBC (4.23-9.07) x10^3/uL RBC (4.63-6.08) x10^6/uL Hgb (13.7-17.5) g/dL Hct (40.1-51.0) % MCV (79.0-92.2) fL MCH (25.7-32.2) pg MCHC (32.3-36.5) g/dL RDW (11.6-14.4) % Plt Count (163-337) x10^3/uL MPV (9.4-12.4) fL Gran % (34.0-67.9) % Immature Gran % (Auto) (0.001-0.429) % Nucleat RBC Rel Count (0.00-0.2) % Eos # (Auto) (0.04-0.54) x10^3/uL Immature Gran # (Auto) (0.001-0.031) x10^3u/L Absolute Lymphs (auto) (1.32-3.57) x10^3/uL Absolute Monos (auto) (0.30-0.82) x10^3/uL Absolute Nucleated RBC (0.00-0.012) x10^3u/L Lymphocytes % (21.8-53.1) % Monocytes % (5.3-12.2) % Eosinophils % (0.8-7.0) % Basophils % (0.2-1.2) % Absolute Granulocytes (1.78-5.38) x10^3/uL Basophils # (0.01-0.08) x10^3/uL D-Dimer (0.0-0.50) mg/L Sodium (135-145) mmol/L Potassium (3.5-5.1) mmol/L Chloride (98-107) mmol/L Carbon Dioxide (22-30) mmol/L Anion Gap (5-15) MEQ/L BUN (9-20) mg/dL Creatinine (0.66-1.25) mg/dL Estimated GFR ML/MIN Glucose (74-106) mg/dL Calcium (8.4-10.2) mg/dL Total Bilirubin (0.2-1.3) mg/dL AST (17-59) U/L ALT (0-50) U/L Alkaline Phosphatase (38-126) U/L Troponin I < 0.012 (0.000-0.033) ng/mL NT-Pro-B Natriuret Pep (<300) pg/mL Serum Total Protein (6.3-8.2) g/dL Albumin (3.5-5.0) g/dL Urine Color Yellow (Yellow) Urine Appearance Clear (Clear) Urine pH 7.5 (4.6-8.0) Ur Specific [place] 1.015 (1.005-1.030) Urine Protein Negative (Negative) Urine Glucose (UA) Negative (Negative) mg/dL Urine Ketones Negative (Negative) Urine Blood Negative (Negative) Urine Nitrite Negative (Negative) Urine Bilirubin Negative (Negative) Urine Urobilinogen 0.2 (0.2) mg/dL Ur Leukocyte Esterase Trace A (Negative) U Hyaline Cast (Auto) NONE SEEN (0-2) /LPF Urine Microscopic RBC 3-5 (0-5) /HPF Urine Microscopic WBC 0-2 (0-5) /HPF Ur Epithelial Cells None Seen (None Seen) /HPF Urine Bacteria None Seen (None Seen) /HPF Urine Culture Reflexed NO (NO) Urine Opiates Level NEGATIVE (NEGATIVE) Ur Methadone NEGATIVE (NEGATIVE) Urine Barbiturates NEGATIVE (NEGATIVE) Ur Phencyclidine (PCP) NEGATIVE (NEGATIVE) Urine Amphetamine NEGATIVE (NEGATIVE) U Benzodiazepine Level NEGATIVE (NEGATIVE) Urine Cocaine NEGATIVE (NEGATIVE) Urine Marijuana (THC) POSITIVE A (NEGATIVE) 12/16/24 12/16/24 12/16/24 Range/Units 10:27 10:27 10:27 WBC 7.0 (4.23-9.07) x10^3/uL RBC 4.74 (4.63-6.08) x10^6/uL Hgb 13.9 (13.7-17.5) g/dL Hct 42.6 (40.1-51.0) % MCV 89.9 (79.0-92.2) fL MCH 29.3 (25.7-32.2) pg MCHC 32.6 (32.3-36.5) g/dL RDW 13.4 (11.6-14.4) % Plt Count 280 (163-337) x10^3/uL MPV 9.8 (9.4-12.4) fL Gran % 67.7 (34.0-67.9) % Immature Gran % (Auto) 0.3 (0.001-0.429) % Nucleat RBC Rel Count 0.0 (0.00-0.2) % Eos # (Auto) 0.07 (0.04-0.54) x10^3/uL Immature Gran # (Auto) 0.02 (0.001-0.031) x10^3u/L Absolute Lymphs (auto) 1.56 (1.32-3.57) x10^3/uL Absolute Monos (auto) 0.53 (0.30-0.82) x10^3/uL Absolute Nucleated RBC 0.00 (0.00-0.012) x10^3u/L Lymphocytes % 22.2 (21.8-53.1) % Monocytes % 7.5 (5.3-12.2) % Eosinophils % 1.0 (0.8-7.0) % Basophils % 1.3 H (0.2-1.2) % Absolute Granulocytes 4.77 (1.78-5.38) x10^3/uL Basophils # 0.09 H (0.01-0.08) x10^3/uL D-Dimer 0.82 H* (0.0-0.50) mg/L Sodium 139 (135-145) mmol/L Potassium 3.9 (3.5-5.1) mmol/L Chloride 105 (98-107) mmol/L Carbon Dioxide 23 (22-30) mmol/L Anion Gap 15.7 H (5-15) MEQ/L BUN 16 (9-20) mg/dL Creatinine 0.98 (0.66-1.25) mg/dL Estimated GFR 84.0 ML/MIN Glucose 111 H (74-106) mg/dL Calcium 9.1 (8.4-10.2) mg/dL Total Bilirubin 0.80 (0.2-1.3) mg/dL AST 38 (17-59) U/L ALT 24 (0-50) U/L Alkaline Phosphatase 61 (38-126) U/L Troponin I (0.000-0.033) ng/mL NT-Pro-B Natriuret Pep 45.4 (<300) pg/mL Serum Total Protein 7.1 (6.3-8.2) g/dL Albumin 4.3 (3.5-5.0) g/dL Urine Color (Yellow) Urine Appearance (Clear) Urine pH (4.6-8.0) Ur Specific [place] (1.005-1.030) Urine Protein (Negative) Urine Glucose (UA) (Negative) mg/dL Urine Ketones (Negative) Urine Blood (Negative) Urine Nitrite (Negative) Urine Bilirubin (Negative) Urine Urobilinogen (0.2) mg/dL Ur Leukocyte Esterase (Negative) U Hyaline Cast (Auto) (0-2) /LPF Urine Microscopic RBC (0-5) /HPF Urine Microscopic WBC (0-5) /HPF Ur Epithelial Cells (None Seen) /HPF Urine Bacteria (None Seen) /HPF Urine Culture Reflexed (NO) Urine Opiates Level (NEGATIVE) Ur Methadone (NEGATIVE) Urine Barbiturates (NEGATIVE) Ur Phencyclidine (PCP) (NEGATIVE) Urine Amphetamine (NEGATIVE) U Benzodiazepine Level (NEGATIVE) Urine Cocaine (NEGATIVE) Urine Marijuana (THC) (NEGATIVE) - Progress Progress: improved Progress Note: 61-year-old male presents to our ED for evaluation of acute onset headache and lightheadedness. Patient had a near syncopal episode. Upon arrival to our ED patient's blood pressure was 180 systolic. Patient is not currently on blood pressure medication. Physical exam nonremarkable. No focal or lateralizing symptomology. Preliminary workup negative. EKG sinus rhythm. No ischemic changes. D-dimer positive. CTA chest negative for PE. Chronic findings observed no acute pathology on today's CT chest with contrast. Patient continues to complain of a headache. Patient advised that he is allergic to NSAIDs. We will update our allergy profile. Compazine ordered for patient's headache. Patient will be admitted for further evaluation and treatment. Case discussed with hospitalist Dr. Stanton who accepts admission to observation at 1404. Plan of care discussed with patient. He agrees to admission at [facility] for further evaluation and treatment. Portions of this note were created with voice recognition technology. There may be grammatical, spelling, punctuation or sound alike errors Complexity of problem addressed is moderate acute complicated. No critical care time. Complex of data reviewed and analyzed is extensive. Test ordered test reviewed results analyzed and correlated clinically with history and physical exam. Management discussed with hospitalist who excepts admission to observation at 1404. Risk of complication and or risk of morbidity/mortality of patient management is high. Patient requires hospitalization for further evaluation and treatment. Vital stable. Time spent admit patient is approximately 20 minutes. Plan of care established for shared decision making. No social determinants of health present to impede follow-up. Portions of this note were created with voice recognition technology. There may be grammatical, spelling, punctuation or sound alike errors 12/16/24 14:07 Counseled pt/family regarding: lab results, diagnosis, rad results - Departure Departure Disposition: Observation Clinical Impression: Acute headache, Near syncope, Hypertension Condition: Stable Critical Care Time: No Referrals: LENNOX GRAVES MD [Primary Care Provider, INTERNAL MEDICINE] - Follow up/PCP as directed
[2024-12-16 10:41] LABS: Absolute Neutrophil Ct (ANC) 4.77 x10^3/uL (1.78-5.38); BASOPHIL % 1.3 % (0.2-1.2); Basophil (Absolute #) 0.09 x10^3/uL (0.01-0.08); Eosinophil (Absolute #) 0.07 x10^3/uL (0.04-0.54); Hematocrit 42.6 % (40.1-51.0); Hemoglobin 13.9 g/dL (13.7-17.5); IMMATURE GRAN # 0.02 x10^3u/L (0.001-0.031); IMMATURE GRAN % 0.3 % (0.001-0.429); Lymphocyte (Absolute #) 1.56 x10^3/uL (1.32-3.57); Lymphocytes % 22.2 % (21.8-53.1); Mean Cell Volume 89.9 fL (79.0-92.2); Mean Corpuscular Hemoglobin 29.3 pg (25.7-32.2); Mean Corpuscular Hgb Concent. 32.6 g/dL (32.3-36.5); Mean Platelet Volume 9.8 fL (9.4-12.4); Monocyte (Absolute #) 0.53 x10^3/uL (0.30-0.82); Monocytes % 7.5 % (5.3-12.2); Neutrophil % 67.7 % (34.0-67.9); Platelet Count 280 x10^3/uL (163-337); Red Blood Count 4.74 x10^6/uL (4.63-6.08); Red Cell Distribution Width 13.4 % (11.6-14.4)
[2024-12-16 10:49] LABS: Appearance Clear (Clear); Bacteria None Seen /HPF (None Seen); Bilirubin Negative (Negative); Blood Negative (Negative); Epithelial Cells None Seen /HPF (None Seen); Glucose, Urine Negative (Negative); Hyaline Casts NONE SEEN /LPF (0-2); Ketones Negative (Negative); Leukocyte Esterase Trace (Negative); Nitrite Negative (Negative); Ph 7.5 (4.6-8.0); Protein,Urine Dip Negative (Negative); Specific Gravity 1.015 (1.005-1.030); Urobilinogen 0.2 mg/dL (0.2); WBC 0-2 /HPF (0-5)
[2024-12-16 11:02] LABS: Amphetamine,Urine NEGATIVE (NEGATIVE); Barbiturate,Urine NEGATIVE (NEGATIVE); Benzodiazepine,Urine NEGATIVE (NEGATIVE); Cocaine,Urine NEGATIVE (NEGATIVE); Methadone,Urine NEGATIVE (NEGATIVE); Opiate,Urine NEGATIVE (NEGATIVE); PCP,Urine NEGATIVE (NEGATIVE); THC,Urine POSITIVE (NEGATIVE)
[2024-12-16 11:06] LABS: ALBUMIN 4.3 g/dL (3.5-5.0); ANION GAP 15.7 MEQ/L (5-15); BILIRUBIN,TOTAL 0.8 mg/dL (0.2-1.3); Calcium 9.1 mg/dL (8.4-10.2); Creatinine 1 0.98 mg/dL (0.66-1.25); NT PRO BNPII 45.4 pg/mL (<300); Potassium 3.9 mmol/L (3.5-5.1); Total Protein 7.1 g/dL (6.3-8.2)
--- NOTE | 2024-12-16 11:11 | XRAY ---
Indication: Headache. Near syncope. Stroke. Multiple contiguous axial images obtained through the head without contrast. Comparison: May 27, 2023 Age-appropriate global atrophy. Right basal ganglia demonstrates new 5 mm round focus of hypoattenuation (image 27), possible acute ischemia. No acute intracranial hemorrhage, abnormal extra-axial fluid collection, or mass effect. Fourth ventricle is midline without hydrocephalus. Espitia-white matter differentiation preserved. Bony calvarium intact. Visualized paranasal sinuses and mastoid air cells are clear. Impression: New 5 mm right basal ganglia hypoattenuation, possible acute micro-ischemia. Remaining CT head without contrast exam is negative.
--- NOTE | 2024-12-16 13:45 | XRAY ---
Indication: Elevated d-dimer. Multiple contiguous images obtained through the chest using 80 cc Isovue 370 contrast and PE protocol. Comparison: May 27, 2023. Good opacification pulmonary arteries to include the lobar and segmental branches. Mild diffuse respiration artifact limits evaluation of the more distal lobar and segmental branches. No pulmonary embolus. Heart not enlarged. Aorta again millimeters arteriosclerotic without aneurysm/dissection. Stable tiny mediastinal and right hilar calcified nodes. No pathologic mediastinal/hilar lymphadenopathy. Lungs again demonstrates diffuse pulmonary emphysema and scattered tiny bilateral calcific granulomas. No new pulmonary mass/nodule, infiltrate, or effusion. Bony thorax intact again with minimal/mild degenerative changes throughout spine. Limited upper abdomen including adrenal glands are unremarkable. Impression: 1. Respiration artifact limits pulmonary embolus evaluation. Again no obvious pulmonary embolus or acute cardiopulmonary abnormalities. 2. Again chronic findings including pulmonary emphysema, arteriosclerotic disease, degenerative spondylosis, and old granulomatous disease
[2024-12-16] MEDS ORDERED: Compazine 10 MG/2 ML ONE (14:09)
[2024-12-16] MEDS: Compazine 10 MG/2 ML IV ONE (14:10)
[2024-12-16] MEDS: TORAdol 30 mg Injection IV ONE (14:10)
[2024-12-16 15:44] LABS: INR 1.04 (0.8-3.0); PROTIME 11.3 SECONDS (9.4-12.5); PTT 30.9 SECONDS (25.1-36.5)
[2024-12-16] MEDS: Ecotrin 325 MG PO ONE (16:05)
--- NOTE | 2024-12-16 16:31 | PCM.HP ---
<JAG TIDWELL - Last Filed: 12/16/24 16:25> History of Present Illness - Chief Complaint Chief Complaint: Near syncope, headache Date: 12/16/24 History of Present Illness: is a 69 year old male with a pmhx of HTN, HLD, BPH, and tobacco use, who presented to the ED 12/16/24 for evaluation of near syncope accompanied by acute headache and lightheadedness. 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 He experienced a sudden onset of headache, followed by intense lightheadedness and a sensation of impending loss of consciousness. He sought care at a local pharmacy where his blood pressure was found to be elev ated to 180 systolic. He notes that he has not been taking antihypertensives for the past two years, as his BP readings had been within normal range, including a reading of 120 systolic earlier this morning. He denies associated chest pain, shortness of breath, diaphoresis, nausea, or vomiting. The lightheadedness was initially worse on standing but persisted at rest. Headache has since resolved f ollowing treatment with IV Compazine in the ED. He denies any other complaints. On arrival, he was hypertensive (SBP 180s) but otherwise hemodynamically stable. Neurologic exam revealed no focal or lateralizing signs. Physical exam was unremarkable. A CT head revealed a 5 mm hypoattenuating lesion in the right basal ganglia, concerning for possible acute micro-ischemia. Neurology was consulted and reviewed the CT head, interpreting the right basal ganglia hypoattenuation as more consistent with a chronic infarct rather than an acute process.Patient was given aspirin 325 mg. A non-contrast MRI of the brain, MRA brain (without contrast), and MRA neck (with contrast) were ordered as part of the stroke workup. EKG showed sinus rhythm at 75 bpm with normal intervals, axis, and QRS complex, with no ischemic changes. D-dimer was elevated, prompting a CTA chest, which was negative for pulmonary embolism and showed only chronic changes. A lipid panel, HbA1c, PT/INR, and PTT were also ordered for vascular risk assessment. The patient's headache has resolved, and he currently denies dizziness, chest pain, or neurologic symptoms. - Review of Systems Constitutional: No Symptoms Eyes: No Symptoms Ears, Nose, & Throat: No Symptoms Respiratory: No Symptoms Cardiac: No Symptoms Abdominal/Gastrointestinal: No Symptoms Genitourinary Symptoms: No Symptoms Musculoskeletal: No Symptoms Skin: No Symptoms Neurological: Dizziness Psychological: No Symptoms Endocrine: No Symptoms Hematologic/Lymphatic: No Symptoms Immunological/Allergic: No Symptoms Medications & Allergies Home Medications: Home Medication List Tamsulosin HCl 0.4 mg [Flomax 0.4 MG] 0.4 mg PO HS 04/09/16 [History Confirmed 12/16/24] Finasteride 5 mg [Proscar 5 MG] 5 mg PO HS 12/16/24 [History Confirmed 12/16/24] Rosuvastatin Calcium 40 mg PO DAILY 12/16/24 [History Confirmed 12/16/24] Allergies/Adverse Reactions: Allergies Allergy/AdvReac Type Severity Reaction Status Date / Time alcohol Allergy Mild black out- Verified 12/16/24 10:05 pancreatitis- very ill codeine Allergy itching, Verified 12/16/24 10:05 swelling, very irritated NSAIDS (Non-Steroidal Allergy Verified 12/16/24 14:11 Anti-Inflamma - Past Medical History Past Medical History: Yes Neurological History: No Pertinent History ENT History: No Pertinent History Cardiac History: High Cholesterol, Hypertension Respiratory History: No Pertinent History Endocrine Medical History: No Pertinent History Musculoskelatal History: No Pertinent History GI Medical History: No Pertinent History History: No Pertinent History Pyscho-Social History: No Pertinent History Male Reproductive Disorders: Prostate Problems, Other Comment: prostate issues - Past Surgical History Past Surgical History: No Neuro Surgical History: No Pertinent History Cardiac History: No Pertinent History Respiratory Surgery: No Pertinent History GI Surgical History: No Pertinent History Genitourinary Surgical Hx: No Pertinent History Musculskeletal Surgical Hx: No Pertinent History Male Surgical History: No Pertinent History Significant Family History: heart disease - Social History Smoking Status: Current every day smoker How long have you smoked: 45 years Exposure to second hand smoke: Yes Alcohol: None Drug Use: marijuana - Social Determinants of Health Will the patient participate in the screening: Declined to provide - Physical Exam Vital Signs: Vital Signs - 24 hr Temp Pulse Resp BP BP Pulse Ox 12/16/24 14:59 96.9 F 66 18 141/88 94 L 12/16/24 14:30 68 140/81 97 12/16/24 14:11 94 L 12/16/24 14:00 112 H 32 H 166/84 12/16/24 13:31 64 18 145/63 97 12/16/24 13:00 54 L 17 140/89 98 12/16/24 12:51 57 L 19 163/78 98 12/16/24 12:30 61 15 142/86 97 12/16/24 12:00 54 L 21 157/82 97 12/16/24 11:30 55 L 18 142/87 97 12/16/24 11:00 64 15 144/83 97 12/16/24 10:40 62 21 141/87 95 12/16/24 10:31 160/71 12/16/24 10:30 97 12/16/24 10:14 97.5 F 66 18 181/88 94 L 12/16/24 10:12 91 H 27 H 181/88 73 L General Appearance: no apparent distress Neurologic Exam: alert, oriented x 3, cooperative Eye Exam: PERRL/EOMI Ears, Nose, Throat Exam: normal ENT inspection Neck Exam: normal inspection Respiratory Exam: normal breath sounds, lungs clear Cardiovascular Exam: regular rate/rhythm, normal heart sounds Gastrointestinal/Abdomen Exam: soft, normal bowel sounds Rectal Exam: deferred Back Exam: normal inspection Extremity Exam: normal inspection Skin Exam: normal color Results - Labs Lab/Micro Results: Lab Results-Last 24 Hours 12/16/24 12/16/24 12/16/24 Range/Units 10:20 10:20 10:20 WBC (4.23-9.07) x10^3/uL RBC (4.63-6.08) x10^6/uL Hgb (13.7-17.5) g/dL Hct (40.1-51.0) % MCV (79.0-92.2) fL MCH (25.7-32.2) pg MCHC (32.3-36.5) g/dL RDW (11.6-14.4) % Plt Count (163-337) x10^3/uL MPV (9.4-12.4) fL Gran % (34.0-67.9) % Immature Gran % (Auto) (0.001-0.429) % Nucleat RBC Rel Count (0.00-0.2) % Eos # (Auto) (0.04-0.54) x10^3/uL Immature Gran # (Auto) (0.001-0.031) x10^3u/L Absolute Lymphs (auto) (1.32-3.57) x10^3/uL Absolute Monos (auto) (0.30-0.82) x10^3/uL Absolute Nucleated RBC (0.00-0.012) x10^3u/L Lymphocytes % (21.8-53.1) % Monocytes % (5.3-12.2) % Eosinophils % (0.8-7.0) % Basophils % (0.2-1.2) % Absolute Granulocytes (1.78-5.38) x10^3/uL Basophils # (0.01-0.08) x10^3/uL PT 11.3 (9.4-12.5) SECONDS INR 1.04 (0.8-3.0) APTT 30.9 (25.1-36.5) SECONDS D-Dimer (0.0-0.50) mg/L Sodium (135-145) mmol/L Potassium (3.5-5.1) mmol/L Chloride (98-107) mmol/L Carbon Dioxide (22-30) mmol/L Anion Gap (5-15) MEQ/L BUN (9-20) mg/dL Creatinine (0.66-1.25) mg/dL Estimated GFR ML/MIN Glucose (74-106) mg/dL Hemoglobin A1c 5.36 (4.5-6.0) % Calcium (8.4-10.2) mg/dL Total Bilirubin (0.2-1.3) mg/dL AST (17-59) U/L ALT (0-50) U/L Alkaline Phosphatase (38-126) U/L Troponin I (0.000-0.033) ng/mL NT-Pro-B Natriuret Pep (<300) pg/mL Serum Total Protein (6.3-8.2) g/dL Albumin (3.5-5.0) g/dL Triglycerides 80 (30-150) mg/dL Cholesterol 127 (50-200) mg/dL LDL Cholesterol 60 (30-100) mg/dL HDL Cholesterol 40 (40-60) mg/dL Heart Disease Risk Ratio 3.0 Urine Color (Yellow) Urine Appearance (Clear) Urine pH (4.6-8.0) Ur Specific [place] (1.005-1.030) Urine Protein (Negative) Urine Glucose (UA) (Negative) mg/dL Urine Ketones (Negative) Urine Blood (Negative) Urine Nitrite (Negative) Urine Bilirubin (Negative) Urine Urobilinogen (0.2) mg/dL Ur Leukocyte Esterase (Negative) U Hyaline Cast (Auto) (0-2) /LPF Urine Microscopic RBC (0-5) /HPF Urine Microscopic WBC (0-5) /HPF Ur Epithelial Cells (None Seen) /HPF Urine Bacteria (None Seen) /HPF Urine Culture Reflexed (NO) Urine Opiates Level (NEGATIVE) Ur Methadone (NEGATIVE) Urine Barbiturates (NEGATIVE) Ur Phencyclidine (PCP) (NEGATIVE) Urine Amphetamine (NEGATIVE) U Benzodiazepine Level (NEGATIVE) Urine Cocaine (NEGATIVE) Urine Marijuana (THC) (NEGATIVE) 12/16/24 12/16/24 12/16/24 Range/Units 10:27 10:27 10:27 WBC 7.0 (4.23-9.07) x10^3/uL RBC 4.74 (4.63-6.08) x10^6/uL Hgb 13.9 (13.7-17.5) g/dL Hct 42.6 (40.1-51.0) % MCV 89.9 (79.0-92.2) fL MCH 29.3 (25.7-32.2) pg MCHC 32.6 (32.3-36.5) g/dL RDW 13.4 (11.6-14.4) % Plt Count 280 (163-337) x10^3/uL MPV 9.8 (9.4-12.4) fL Gran % 67.7 (34.0-67.9) % Immature Gran % (Auto) 0.3 (0.001-0.429) % Nucleat RBC Rel Count 0.0 (0.00-0.2) % Eos # (Auto) 0.07 (0.04-0.54) x10^3/uL Immature Gran # (Auto) 0.02 (0.001-0.031) x10^3u/L Absolute Lymphs (auto) 1.56 (1.32-3.57) x10^3/uL Absolute Monos (auto) 0.53 (0.30-0.82) x10^3/uL Absolute Nucleated RBC 0.00 (0.00-0.012) x10^3u/L Lymphocytes % 22.2 (21.8-53.1) % Monocytes % 7.5 (5.3-12.2) % Eosinophils % 1.0 (0.8-7.0) % Basophils % 1.3 H (0.2-1.2) % Absolute Granulocytes 4.77 (1.78-5.38) x10^3/uL Basophils # 0.09 H (0.01-0.08) x10^3/uL PT (9.4-12.5) SECONDS INR (0.8-3.0) APTT (25.1-36.5) SECONDS D-Dimer 0.82 H* (0.0-0.50) mg/L Sodium 139 (135-145) mmol/L Potassium 3.9 (3.5-5.1) mmol/L Chloride 105 (98-107) mmol/L Carbon Dioxide 23 (22-30) mmol/L Anion Gap 15.7 H (5-15) MEQ/L BUN 16 (9-20) mg/dL Creatinine 0.98 (0.66-1.25) mg/dL Estimated GFR 84.0 ML/MIN Glucose 111 H (74-106) mg/dL Hemoglobin A1c (4.5-6.0) % Calcium 9.1 (8.4-10.2) mg/dL Total Bilirubin 0.80 (0.2-1.3) mg/dL AST 38 (17-59) U/L ALT 24 (0-50) U/L Alkaline Phosphatase 61 (38-126) U/L Troponin I (0.000-0.033) ng/mL NT-Pro-B Natriuret Pep 45.4 (<300) pg/mL Serum Total Protein 7.1 (6.3-8.2) g/dL Albumin 4.3 (3.5-5.0) g/dL Triglycerides (30-150) mg/dL Cholesterol (50-200) mg/dL LDL Cholesterol (30-100) mg/dL HDL Cholesterol (40-60) mg/dL Heart Disease Risk Ratio Urine Color (Yellow) Urine Appearance (Clear) Urine pH (4.6-8.0) Ur Specific [place] (1.005-1.030) Urine Protein (Negative) Urine Glucose (UA) (Negative) mg/dL Urine Ketones (Negative) Urine Blood (Negative) Urine Nitrite (Negative) Urine Bilirubin (Negative) Urine Urobilinogen (0.2) mg/dL Ur Leukocyte Esterase (Negative) U Hyaline Cast (Auto) (0-2) /LPF Urine Microscopic RBC (0-5) /HPF Urine Microscopic WBC (0-5) /HPF Ur Epithelial Cells (None Seen) /HPF Urine Bacteria (None Seen) /HPF Urine Culture Reflexed (NO) Urine Opiates Level (NEGATIVE) Ur Methadone (NEGATIVE) Urine Barbiturates (NEGATIVE) Ur Phencyclidine (PCP) (NEGATIVE) Urine Amphetamine (NEGATIVE) U Benzodiazepine Level (NEGATIVE) Urine Cocaine (NEGATIVE) Urine Marijuana (THC) (NEGATIVE) 12/16/24 12/16/24 12/16/24 Range/Units 10:27 10:37 10:37 WBC (4.23-9.07) x10^3/uL RBC (4.63-6.08) x10^6/uL Hgb (13.7-17.5) g/dL Hct (40.1-51.0) % MCV (79.0-92.2) fL MCH (25.7-32.2) pg MCHC (32.3-36.5) g/dL RDW (11.6-14.4) % Plt Count (163-337) x10^3/uL MPV (9.4-12.4) fL Gran % (34.0-67.9) % Immature Gran % (Auto) (0.001-0.429) % Nucleat RBC Rel Count (0.00-0.2) % Eos # (Auto) (0.04-0.54) x10^3/uL Immature Gran # (Auto) (0.001-0.031) x10^3u/L Absolute Lymphs (auto) (1.32-3.57) x10^3/uL Absolute Monos (auto) (0.30-0.82) x10^3/uL Absolute Nucleated RBC (0.00-0.012) x10^3u/L Lymphocytes % (21.8-53.1) % Monocytes % (5.3-12.2) % Eosinophils % (0.8-7.0) % Basophils % (0.2-1.2) % Absolute Granulocytes (1.78-5.38) x10^3/uL Basophils # (0.01-0.08) x10^3/uL PT (9.4-12.5) SECONDS INR (0.8-3.0) APTT (25.1-36.5) SECONDS D-Dimer (0.0-0.50) mg/L Sodium (135-145) mmol/L Potassium (3.5-5.1) mmol/L Chloride (98-107) mmol/L Carbon Dioxide (22-30) mmol/L Anion Gap (5-15) MEQ/L BUN (9-20) mg/dL Creatinine (0.66-1.25) mg/dL Estimated GFR ML/MIN Glucose (74-106) mg/dL Hemoglobin A1c (4.5-6.0) % Calcium (8.4-10.2) mg/dL Total Bilirubin (0.2-1.3) mg/dL AST (17-59) U/L ALT (0-50) U/L Alkaline Phosphatase (38-126) U/L Troponin I < 0.012 (0.000-0.033) ng/mL NT-Pro-B Natriuret Pep (<300) pg/mL Serum Total Protein (6.3-8.2) g/dL Albumin (3.5-5.0) g/dL Triglycerides (30-150) mg/dL Cholesterol (50-200) mg/dL LDL Cholesterol (30-100) mg/dL HDL Cholesterol (40-60) mg/dL Heart Disease Risk Ratio Urine Color Yellow (Yellow) Urine Appearance Clear (Clear) Urine pH 7.5 (4.6-8.0) Ur Specific [place] 1.015 (1.005-1.030) Urine Protein Negative (Negative) Urine Glucose (UA) Negative (Negative) mg/dL Urine Ketones Negative (Negative) Urine Blood Negative (Negative) Urine Nitrite Negative (Negative) Urine Bilirubin Negative (Negative) Urine Urobilinogen 0.2 (0.2) mg/dL Ur Leukocyte Esterase Trace A (Negative) U Hyaline Cast (Auto) NONE SEEN (0-2) /LPF Urine Microscopic RBC 3-5 (0-5) /HPF Urine Microscopic WBC 0-2 (0-5) /HPF Ur Epithelial Cells None Seen (None Seen) /HPF Urine Bacteria None Seen (None Seen) /HPF Urine Culture Reflexed NO (NO) Urine Opiates Level NEGATIVE (NEGATIVE) Ur Methadone NEGATIVE (NEGATIVE) Urine Barbiturates NEGATIVE (NEGATIVE) Ur Phencyclidine (PCP) NEGATIVE (NEGATIVE) Urine Amphetamine NEGATIVE (NEGATIVE) U Benzodiazepine Level NEGATIVE (NEGATIVE) Urine Cocaine NEGATIVE (NEGATIVE) Urine Marijuana (THC) POSITIVE A (NEGATIVE) 12/16/24 Range/Units 14:15 WBC (4.23-9.07) x10^3/uL RBC (4.63-6.08) x10^6/uL Hgb (13.7-17.5) g/dL Hct (40.1-51.0) % MCV (79.0-92.2) fL MCH (25.7-32.2) pg MCHC (32.3-36.5) g/dL RDW (11.6-14.4) % Plt Count (163-337) x10^3/uL MPV (9.4-12.4) fL Gran % (34.0-67.9) % Immature Gran % (Auto) (0.001-0.429) % Nucleat RBC Rel Count (0.00-0.2) % Eos # (Auto) (0.04-0.54) x10^3/uL Immature Gran # (Auto) (0.001-0.031) x10^3u/L Absolute Lymphs (auto) (1.32-3.57) x10^3/uL Absolute Monos (auto) (0.30-0.82) x10^3/uL Absolute Nucleated RBC (0.00-0.012) x10^3u/L Lymphocytes % (21.8-53.1) % Monocytes % (5.3-12.2) % Eosinophils % (0.8-7.0) % Basophils % (0.2-1.2) % Absolute Granulocytes (1.78-5.38) x10^3/uL Basophils # (0.01-0.08) x10^3/uL PT (9.4-12.5) SECONDS INR (0.8-3.0) APTT (25.1-36.5) SECONDS D-Dimer (0.0-0.50) mg/L Sodium (135-145) mmol/L Potassium (3.5-5.1) mmol/L Chloride (98-107) mmol/L Carbon Dioxide (22-30) mmol/L Anion Gap (5-15) MEQ/L BUN (9-20) mg/dL Creatinine (0.66-1.25) mg/dL Estimated GFR ML/MIN Glucose (74-106) mg/dL Hemoglobin A1c (4.5-6.0) % Calcium (8.4-10.2) mg/dL Total Bilirubin (0.2-1.3) mg/dL AST (17-59) U/L ALT (0-50) U/L Alkaline Phosphatase (38-126) U/L Troponin I < 0.012 (0.000-0.033) ng/mL NT-Pro-B Natriuret Pep (<300) pg/mL Serum Total Protein (6.3-8.2) g/dL Albumin (3.5-5.0) g/dL Triglycerides (30-150) mg/dL Cholesterol (50-200) mg/dL LDL Cholesterol (30-100) mg/dL HDL Cholesterol (40-60) mg/dL Heart Disease Risk Ratio Urine Color (Yellow) Urine Appearance (Clear) Urine pH (4.6-8.0) Ur Specific [place] (1.005-1.030) Urine Protein (Negative) Urine Glucose (UA) (Negative) mg/dL Urine Ketones (Negative) Urine Blood (Negative) Urine Nitrite (Negative) Urine Bilirubin (Negative) Urine Urobilinogen (0.2) mg/dL Ur Leukocyte Esterase (Negative) U Hyaline Cast (Auto) (0-2) /LPF Urine Microscopic RBC (0-5) /HPF Urine Microscopic WBC (0-5) /HPF Ur Epithelial Cells (None Seen) /HPF Urine Bacteria (None Seen) /HPF Urine Culture Reflexed (NO) Urine Opiates Level (NEGATIVE) Ur Methadone (NEGATIVE) Urine Barbiturates (NEGATIVE) Ur Phencyclidine (PCP) (NEGATIVE) Urine Amphetamine (NEGATIVE) U Benzodiazepine Level (NEGATIVE) Urine Cocaine (NEGATIVE) Urine Marijuana (THC) (NEGATIVE) - Radiology Impressions Radiology Exams & Impressions: Radiology Procedures Category Date Time Status CHEST WITH CONTRAST [CT] Stat Exams 12/16/24 11:48 Completed ECHO W/2D AND DOPPLER [US] Routine Exams 12/16/24 15:35 Ordered HEAD WITHOUT CONTRAST [CT] Stat Exams 12/16/24 10:22 Completed MRA BRAIN WITHOUT CONTRAST [MRI] Stat Exams 12/17/24 08:00 Ordered MRA NECK WITH CONTRAST [MRI] Stat Exams 12/17/24 08:00 Ordered MRI BRAIN W/O CONTRAST [MRI] Stat Exams 12/17/24 08:00 Ordered Assessment/Plan (1) Near syncope Current Visit: Yes Status: Acute Assessment & Plan: -CT head reviewed and showed a 5 mm area of hypoattenuation in the right basal ganglia -Neurology evaluated and interpreted findings as most consistent with a chronic infarct, not acute ischemia -Patients symptoms (headache, dizziness) resolved; no current focal deficits -Continue neurologic monitoring; no thrombolytics indicated -Continue aspirin 81 mg PO daily for secondary stroke prevention/atrovastatin -Proceed with MRI brain to further characterize the lesion and evaluate for small vessel disease -MRA brain (without contrast) and MRA neck (with contrast) pending to assess for vascular stenosis or other pathology -Lipid, A1c -echo -orthostatic vitals -tele (2) Elevated d-dimer Current Visit: Yes Status: Acute Assessment & Plan: -CTA chest negative for embolism -No further workup indicated unless new symptoms emerge Code(s): R79.89 - OTHER SPECIFIED ABNORMAL FINDINGS OF BLOOD CHEMISTRY (3) BPH (benign prostatic hyperplasia) Current Visit: Yes Status: Acute Assessment & Plan: -continue home meds Code(s): N40.0 - BENIGN PROSTATIC HYPERPLASIA WITHOUT LOWER URINRY TRACT SYMP (4) HLD (hyperlipidemia) Current Visit: Yes Status: Acute Assessment & Plan: -Atorvastatin 80mg Code(s): E78.5 - HYPERLIPIDEMIA, UNSPECIFIED (5) Tobacco abuse Current Visit: Yes Status: Acute Assessment & Plan: -advised cessation -nicotine patch Code(s): Z72.0 - TOBACCO USE (6) Dizziness Current Visit: Yes Status: Acute Assessment & Plan: -see near syncope Code(s): R42 - DIZZINESS AND GIDDINESS (7) Acute headache Current Visit: Yes Status: Acute Assessment & Plan: -Resolved Code(s): R51.9 - HEADACHE, UNSPECIFIED (8) Hypertension Current Visit: Yes Status: Acute Assessment & Plan: -Allow for permissive HTN SBP up to 013947 mmHg DBP >120 -Pt states he was taken off BP meds due to hypotensive episodes VTE: ASA/SCD Dispo: 1-2 days Code status: full Code(s): I10 - ESSENTIAL (PRIMARY) HYPERTENSION Telemedicine Encounter - Telemedicine Encounter Telemedicine Encounter: "The entirety of this encounter was performed via Telemedicine" This visit was performed using real-time audio and video connection between my location and thepatients locationwith the assistance of a surrogateat the patients location. Written or verbal consent was obtained from the patient/guardian to perform this visit [facility]. Any patient questions regarding the telemedicine interaction were answered. <JANELLE LEDEZMA - Last Filed: 12/16/24 18:39> History of Present Illness - Chief Complaint History of Present Illness: is a 69 year old male. - Physical Exam Vital Signs: Vital Signs - 24 hr Temp Pulse Resp BP BP Pulse Ox 12/16/24 14:59 96.9 F 66 18 141/88 94 L 12/16/24 14:30 68 140/81 97 12/16/24 14:11 94 L 12/16/24 14:00 112 H 32 H 166/84 12/16/24 13:31 64 18 145/63 97 12/16/24 13:00 54 L 17 140/89 98 12/16/24 12:51 57 L 19 163/78 98 12/16/24 12:30 61 15 142/86 97 12/16/24 12:00 54 L 21 157/82 97 12/16/24 11:30 55 L 18 142/87 97 12/16/24 11:00 64 15 144/83 97 12/16/24 10:40 62 21 141/87 95 12/16/24 10:31 160/71 12/16/24 10:30 97 12/16/24 10:14 97.5 F 66 18 181/88 94 L 12/16/24 10:12 91 H 27 H 181/88 73 L Results - Labs Lab/Micro Results: Lab Results-Last 24 Hours 12/16/24 12/16/24 12/16/24 Range/Units 10:20 10:20 10:20 WBC (4.23-9.07) x10^3/uL RBC (4.63-6.08) x10^6/uL Hgb (13.7-17.5) g/dL Hct (40.1-51.0) % MCV (79.0-92.2) fL MCH (25.7-32.2) pg MCHC (32.3-36.5) g/dL RDW (11.6-14.4) % Plt Count (163-337) x10^3/uL MPV (9.4-12.4) fL Gran % (34.0-67.9) % Immature Gran % (Auto) (0.001-0.429) % Nucleat RBC Rel Count (0.00-0.2) % Eos # (Auto) (0.04-0.54) x10^3/uL Immature Gran # (Auto) (0.001-0.031) x10^3u/L Absolute Lymphs (auto) (1.32-3.57) x10^3/uL Absolute Monos (auto) (0.30-0.82) x10^3/uL Absolute Nucleated RBC (0.00-0.012) x10^3u/L Lymphocytes % (21.8-53.1) % Monocytes % (5.3-12.2) % Eosinophils % (0.8-7.0) % Basophils % (0.2-1.2) % Absolute Granulocytes (1.78-5.38) x10^3/uL Basophils # (0.01-0.08) x10^3/uL PT 11.3 (9.4-12.5) SECONDS INR 1.04 (0.8-3.0) APTT 30.9 (25.1-36.5) SECONDS D-Dimer (0.0-0.50) mg/L Sodium (135-145) mmol/L Potassium (3.5-5.1) mmol/L Chloride (98-107) mmol/L Carbon Dioxide (22-30) mmol/L Anion Gap (5-15) MEQ/L BUN (9-20) mg/dL Creatinine (0.66-1.25) mg/dL Estimated GFR ML/MIN Glucose (74-106) mg/dL Hemoglobin A1c 5.36 (4.5-6.0) % Calcium (8.4-10.2) mg/dL Total Bilirubin (0.2-1.3) mg/dL AST (17-59) U/L ALT (0-50) U/L Alkaline Phosphatase (38-126) U/L Troponin I (0.000-0.033) ng/mL NT-Pro-B Natriuret Pep (<300) pg/mL Serum Total Protein (6.3-8.2) g/dL Albumin (3.5-5.0) g/dL Triglycerides 80 (30-150) mg/dL Cholesterol 127 (50-200) mg/dL LDL Cholesterol 60 (30-100) mg/dL HDL Cholesterol 40 (40-60) mg/dL Heart Disease Risk Ratio 3.0 TSH 3rd Generation (0.470-4.680) mIU/L Urine Color (Yellow) Urine Appearance (Clear) Urine pH (4.6-8.0) Ur Specific [place] (1.005-1.030) Urine Protein (Negative) Urine Glucose (UA) (Negative) mg/dL Urine Ketones (Negative) Urine Blood (Negative) Urine Nitrite (Negative) Urine Bilirubin (Negative) Urine Urobilinogen (0.2) mg/dL Ur Leukocyte Esterase (Negative) U Hyaline Cast (Auto) (0-2) /LPF Urine Microscopic RBC (0-5) /HPF Urine Microscopic WBC (0-5) /HPF Ur Epithelial Cells (None Seen) /HPF Urine Bacteria (None Seen) /HPF Urine Culture Reflexed (NO) Urine Opiates Level (NEGATIVE) Ur Methadone (NEGATIVE) Urine Barbiturates (NEGATIVE) Ur Phencyclidine (PCP) (NEGATIVE) Urine Amphetamine (NEGATIVE) U Benzodiazepine Level (NEGATIVE) Urine Cocaine (NEGATIVE) Urine Marijuana (THC) (NEGATIVE) 12/16/24 12/16/24 12/16/24 Range/Units 10:20 10:27 10:27 WBC 7.0 (4.23-9.07) x10^3/uL RBC 4.74 (4.63-6.08) x10^6/uL Hgb 13.9 (13.7-17.5) g/dL Hct 42.6 (40.1-51.0) % MCV 89.9 (79.0-92.2) fL MCH 29.3 (25.7-32.2) pg MCHC 32.6 (32.3-36.5) g/dL RDW 13.4 (11.6-14.4) % Plt Count 280 (163-337) x10^3/uL MPV 9.8 (9.4-12.4) fL Gran % 67.7 (34.0-67.9) % Immature Gran % (Auto) 0.3 (0.001-0.429) % Nucleat RBC Rel Count 0.0 (0.00-0.2) % Eos # (Auto) 0.07 (0.04-0.54) x10^3/uL Immature Gran # (Auto) 0.02 (0.001-0.031) x10^3u/L Absolute Lymphs (auto) 1.56 (1.32-3.57) x10^3/uL Absolute Monos (auto) 0.53 (0.30-0.82) x10^3/uL Absolute Nucleated RBC 0.00 (0.00-0.012) x10^3u/L Lymphocytes % 22.2 (21.8-53.1) % Monocytes % 7.5 (5.3-12.2) % Eosinophils % 1.0 (0.8-7.0) % Basophils % 1.3 H (0.2-1.2) % Absolute Granulocytes 4.77 (1.78-5.38) x10^3/uL Basophils # 0.09 H (0.01-0.08) x10^3/uL PT (9.4-12.5) SECONDS INR (0.8-3.0) APTT (25.1-36.5) SECONDS D-Dimer (0.0-0.50) mg/L Sodium 139 (135-145) mmol/L Potassium 3.9 (3.5-5.1) mmol/L Chloride 105 (98-107) mmol/L Carbon Dioxide 23 (22-30) mmol/L Anion Gap 15.7 H (5-15) MEQ/L BUN 16 (9-20) mg/dL Creatinine 0.98 (0.66-1.25) mg/dL Estimated GFR 84.0 ML/MIN Glucose 111 H (74-106) mg/dL Hemoglobin A1c (4.5-6.0) % Calcium 9.1 (8.4-10.2) mg/dL Total Bilirubin 0.80 (0.2-1.3) mg/dL AST 38 (17-59) U/L ALT 24 (0-50) U/L Alkaline Phosphatase 61 (38-126) U/L Troponin I (0.000-0.033) ng/mL NT-Pro-B Natriuret Pep 45.4 (<300) pg/mL Serum Total Protein 7.1 (6.3-8.2) g/dL Albumin 4.3 (3.5-5.0) g/dL Triglycerides (30-150) mg/dL Cholesterol (50-200) mg/dL LDL Cholesterol (30-100) mg/dL HDL Cholesterol (40-60) mg/dL Heart Disease Risk Ratio TSH 3rd Generation 2.600 (0.470-4.680) mIU/L Urine Color (Yellow) Urine Appearance (Clear) Urine pH (4.6-8.0) Ur Specific [place] (1.005-1.030) Urine Protein (Negative) Urine Glucose (UA) (Negative) mg/dL Urine Ketones (Negative) Urine Blood (Negative) Urine Nitrite (Negative) Urine Bilirubin (Negative) Urine Urobilinogen (0.2) mg/dL Ur Leukocyte Esterase (Negative) U Hyaline Cast (Auto) (0-2) /LPF Urine Microscopic RBC (0-5) /HPF Urine Microscopic WBC (0-5) /HPF Ur Epithelial Cells (None Seen) /HPF Urine Bacteria (None Seen) /HPF Urine Culture Reflexed (NO) Urine Opiates Level (NEGATIVE) Ur Methadone (NEGATIVE) Urine Barbiturates (NEGATIVE) Ur Phencyclidine (PCP) (NEGATIVE) Urine Amphetamine (NEGATIVE) U Benzodiazepine Level (NEGATIVE) Urine Cocaine (NEGATIVE) Urine Marijuana (THC) (NEGATIVE) 12/16/24 12/16/24 12/16/24 Range/Units 10:27 10:27 10:37 WBC (4.23-9.07) x10^3/uL RBC (4.63-6.08) x10^6/uL Hgb (13.7-17.5) g/dL Hct (40.1-51.0) % MCV (79.0-92.2) fL MCH (25.7-32.2) pg MCHC (32.3-36.5) g/dL RDW (11.6-14.4) % Plt Count (163-337) x10^3/uL MPV (9.4-12.4) fL Gran % (34.0-67.9) % Immature Gran % (Auto) (0.001-0.429) % Nucleat RBC Rel Count (0.00-0.2) % Eos # (Auto) (0.04-0.54) x10^3/uL Immature Gran # (Auto) (0.001-0.031) x10^3u/L Absolute Lymphs (auto) (1.32-3.57) x10^3/uL Absolute Monos (auto) (0.30-0.82) x10^3/uL Absolute Nucleated RBC (0.00-0.012) x10^3u/L Lymphocytes % (21.8-53.1) % Monocytes % (5.3-12.2) % Eosinophils % (0.8-7.0) % Basophils % (0.2-1.2) % Absolute Granulocytes (1.78-5.38) x10^3/uL Basophils # (0.01-0.08) x10^3/uL PT (9.4-12.5) SECONDS INR (0.8-3.0) APTT (25.1-36.5) SECONDS D-Dimer 0.82 H* (0.0-0.50) mg/L Sodium (135-145) mmol/L Potassium (3.5-5.1) mmol/L Chloride (98-107) mmol/L Carbon Dioxide (22-30) mmol/L Anion Gap (5-15) MEQ/L BUN (9-20) mg/dL Creatinine (0.66-1.25) mg/dL Estimated GFR ML/MIN Glucose (74-106) mg/dL Hemoglobin A1c (4.5-6.0) % Calcium (8.4-10.2) mg/dL Total Bilirubin (0.2-1.3) mg/dL AST (17-59) U/L ALT (0-50) U/L Alkaline Phosphatase (38-126) U/L Troponin I < 0.012 (0.000-0.033) ng/mL NT-Pro-B Natriuret Pep (<300) pg/mL Serum Total Protein (6.3-8.2) g/dL Albumin (3.5-5.0) g/dL Triglycerides (30-150) mg/dL Cholesterol (50-200) mg/dL LDL Cholesterol (30-100) mg/dL HDL Cholesterol (40-60) mg/dL Heart Disease Risk Ratio TSH 3rd Generation (0.470-4.680) mIU/L Urine Color Yellow (Yellow) Urine Appearance Clear (Clear) Urine pH 7.5 (4.6-8.0) Ur Specific [place] 1.015 (1.005-1.030) Urine Protein Negative (Negative) Urine Glucose (UA) Negative (Negative) mg/dL Urine Ketones Negative (Negative) Urine Blood Negative (Negative) Urine Nitrite Negative (Negative) Urine Bilirubin Negative (Negative) Urine Urobilinogen 0.2 (0.2) mg/dL Ur Leukocyte Esterase Trace A (Negative) U Hyaline Cast (Auto) NONE SEEN (0-2) /LPF Urine Microscopic RBC 3-5 (0-5) /HPF Urine Microscopic WBC 0-2 (0-5) /HPF Ur Epithelial Cells None Seen (None Seen) /HPF Urine Bacteria None Seen (None Seen) /HPF Urine Culture Reflexed NO (NO) Urine Opiates Level (NEGATIVE) Ur Methadone (NEGATIVE) Urine Barbiturates (NEGATIVE) Ur Phencyclidine (PCP) (NEGATIVE) Urine Amphetamine (NEGATIVE) U Benzodiazepine Level (NEGATIVE) Urine Cocaine (NEGATIVE) Urine Marijuana (THC) (NEGATIVE) 12/16/24 12/16/24 Range/Units 10:37 14:15 WBC (4.23-9.07) x10^3/uL RBC (4.63-6.08) x10^6/uL Hgb (13.7-17.5) g/dL Hct (40.1-51.0) % MCV (79.0-92.2) fL MCH (25.7-32.2) pg MCHC (32.3-36.5) g/dL RDW (11.6-14.4) % Plt Count (163-337) x10^3/uL MPV (9.4-12.4) fL Gran % (34.0-67.9) % Immature Gran % (Auto) (0.001-0.429) % Nucleat RBC Rel Count (0.00-0.2) % Eos # (Auto) (0.04-0.54) x10^3/uL Immature Gran # (Auto) (0.001-0.031) x10^3u/L Absolute Lymphs (auto) (1.32-3.57) x10^3/uL Absolute Monos (auto) (0.30-0.82) x10^3/uL Absolute Nucleated RBC (0.00-0.012) x10^3u/L Lymphocytes % (21.8-53.1) % Monocytes % (5.3-12.2) % Eosinophils % (0.8-7.0) % Basophils % (0.2-1.2) % Absolute Granulocytes (1.78-5.38) x10^3/uL Basophils # (0.01-0.08) x10^3/uL PT (9.4-12.5) SECONDS INR (0.8-3.0) APTT (25.1-36.5) SECONDS D-Dimer (0.0-0.50) mg/L Sodium (135-145) mmol/L Potassium (3.5-5.1) mmol/L Chloride (98-107) mmol/L Carbon Dioxide (22-30) mmol/L Anion Gap (5-15) MEQ/L BUN (9-20) mg/dL Creatinine (0.66-1.25) mg/dL Estimated GFR ML/MIN Glucose (74-106) mg/dL Hemoglobin A1c (4.5-6.0) % Calcium (8.4-10.2) mg/dL Total Bilirubin (0.2-1.3) mg/dL AST (17-59) U/L ALT (0-50) U/L Alkaline Phosphatase (38-126) U/L Troponin I < 0.012 (0.000-0.033) ng/mL NT-Pro-B Natriuret Pep (<300) pg/mL Serum Total Protein (6.3-8.2) g/dL Albumin (3.5-5.0) g/dL Triglycerides (30-150) mg/dL Cholesterol (50-200) mg/dL LDL Cholesterol (30-100) mg/dL HDL Cholesterol (40-60) mg/dL Heart Disease Risk Ratio TSH 3rd Generation (0.470-4.680) mIU/L Urine Color (Yellow) Urine Appearance (Clear) Urine pH (4.6-8.0) Ur Specific [place] (1.005-1.030) Urine Protein (Negative) Urine Glucose (UA) (Negative) mg/dL Urine Ketones (Negative) Urine Blood (Negative) Urine Nitrite (Negative) Urine Bilirubin (Negative) Urine Urobilinogen (0.2) mg/dL Ur Leukocyte Esterase (Negative) U Hyaline Cast (Auto) (0-2) /LPF Urine Microscopic RBC (0-5) /HPF Urine Microscopic WBC (0-5) /HPF Ur Epithelial Cells (None Seen) /HPF Urine Bacteria (None Seen) /HPF Urine Culture Reflexed (NO) Urine Opiates Level NEGATIVE (NEGATIVE) Ur Methadone NEGATIVE (NEGATIVE) Urine Barbiturates NEGATIVE (NEGATIVE) Ur Phencyclidine (PCP) NEGATIVE (NEGATIVE) Urine Amphetamine NEGATIVE (NEGATIVE) U Benzodiazepine Level NEGATIVE (NEGATIVE) Urine Cocaine NEGATIVE (NEGATIVE) Urine Marijuana (THC) POSITIVE A (NEGATIVE) - Radiology Impressions Radiology Exams & Impressions: Radiology Procedures Category Date Time Status CHEST WITH CONTRAST [CT] Stat Exams 12/16/24 11:48 Completed ECHO W/2D AND DOPPLER [US] Routine Exams 12/16/24 15:35 Taken HEAD WITHOUT CONTRAST [CT] Stat Exams 12/16/24 10:22 Completed MRA BRAIN WITHOUT CONTRAST [MRI] Stat Exams 12/17/24 08:00 Ordered MRA NECK WITH CONTRAST [MRI] Stat Exams 12/17/24 08:00 Ordered MRI BRAIN W/O CONTRAST [MRI] Stat Exams 12/17/24 08:00 Ordered Telemedicine Encounter - Telemedicine Encounter Telemedicine Encounter: "The entirety of this encounter was performed via Telemedicine" This visit was performed using real-time audio and video connection between my location and thepatients locationwith the assistance of a surrogateat the patients location. Written or verbal consent was obtained from the patient/guardian to perform this visit [email or web address] technology. Any patient questions regarding the telemedicine interaction were answered. CADENCE Encounter - CADENCE Encounter Attestation CADENCE Encounter Attestation: "IhavepersonallyseenSavannaLUISA RAY andhavediscussed pertinent aspects of their care with Jag Tidwell and agree with the history, physical exam (any modifications based on my personal exam will be noted below), assessment, and plan as outlined in original note. Please see immediately below for my summary of findings and additional assessment and plan along with any meaningful corrections/explanations to the Subjective/Objective portions of the CADENCE note will be noted." My portion of the encounter took place via telemedicine. -Patient presents with dizziness and lightheadedness with very elevated blood p ressures, systolic 180s. He checks his blood pressure daily and is normal, max 120s systolic. CT head concerning for small area of ischemia but appears to be remote, per neuro. Await MRI. Patient's symptoms have now completely resolved.
[2024-12-16] MEDS ORDERED: TYLENOL 325 MG PO PRN (16:45)
[2024-12-16] MEDS ORDERED: Zofran 4 MG/2 ML VIAL IV PRN (16:45)
[2024-12-16] MEDS: Nicoderm CQ 21 MG TOP SCH (17:31)
[2024-12-16] MEDS: ZOCOR 20MG PO SCH (17:44)
[2024-12-16] MEDS: Flomax 0.4 MG PO SCH (22:52)
[2024-12-16] MEDS: Proscar 5 MG PO SCH (22:52)
[2024-12-17 03:55] VITALS: RESP 16
[2024-12-17 05:02] LABS: Absolute Neutrophil Ct (ANC) 3.93 x10^3/uL (1.78-5.38); Basophil (Absolute #) 0.07 x10^3/uL (0.01-0.08); Eosinophil % 2.6 % (0.8-7.0); Eosinophil (Absolute #) 0.18 x10^3/uL (0.04-0.54); Hematocrit 40.8 % (40.1-51.0); Hemoglobin 13.8 g/dL (13.7-17.5); IMMATURE GRAN # 0.01 x10^3u/L (0.001-0.031); IMMATURE GRAN % 0.1 % (0.001-0.429); Lymphocyte (Absolute #) 2.11 x10^3/uL (1.32-3.57); Lymphocytes % 30.8 % (21.8-53.1); Mean Cell Volume 87.7 fL (79.0-92.2); Mean Corpuscular Hemoglobin 29.7 pg (25.7-32.2); Mean Corpuscular Hgb Concent. 33.8 g/dL (32.3-36.5); Mean Platelet Volume 10.4 fL (9.4-12.4); Monocyte (Absolute #) 0.55 x10^3/uL (0.30-0.82); Neutrophil % 57.5 % (34.0-67.9); Platelet Count 292 x10^3/uL (163-337); Red Blood Count 4.65 x10^6/uL (4.63-6.08); Red Cell Distribution Width 13.6 % (11.6-14.4); White Blood Count 6.9 x10^3/uL (4.23-9.07)
--- NOTE | 2024-12-17 05:17 | PCM.NOTE ---
Date and Time: 12/17/24 0516 Subjective Assessment: is a 69 year old male with a pmhx of HTN, HLD, BPH, and tobacco use, who presented to the ED 12/16/24 for evaluation of near syncope accompanied by acute headache and lightheadedness. 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 He experienced a sudden onset of headache, followed by intense lightheadedness and a sensation of impending loss of consciousness. He sought care at a local pharmacy where his blood pressure was found to be elevated to 180 systolic. He notes that he has not been taking antihypertensives for the past two years, as his BP readings had been within normal range, including a reading of 120 systolic earlier this morning. He denies associated chest pain, shortness of breath, diaphoresis, nausea, or vomiting. The lightheadedness was initially worse on standing but persisted at rest. Headache has since resolved following treatment with IV Compazine in the ED. He denies any other complaints. On arrival, he was hypertensive (SBP 180s) but otherwise hemodynamically stable. Neurologic exam revealed no focal or lateralizing signs. Physical exam was unremarkable. A CT head revealed a 5 mm hypoattenuating lesion in the right basal ganglia, concerning for possible acute micro-ischemia. Neurology was consulted and reviewed the CT head, interpreting the right basal ganglia hypoattenuation as more consistent with a chronic infarct rather than an acute process.Patient was given aspirin 325 mg. A non-contrast MRI of the brain, MRA brain (without contrast), and MRA neck (with contrast) were ordered as part of the stroke workup. EKG showed sinus rhythm at 75 bpm with normal intervals, axis, and QRS complex, with no ischemic changes. D-dimer was elevated, prompting a CTA chest, which was negative for pulmonary embolism and showed only chronic changes. A lipid panel, HbA1c, PT/INR, and PTT were also ordered for vascular risk assessment. The patient's headache has resolved, and he currently denies dizziness, chest pain, or neurologic symptoms. Objective Data Vital Signs: Vital Signs - 24 hr Temp Pulse Resp BP BP Pulse Ox 12/17/24 03:54 98.0 F 68 16 154/90 96 12/17/24 00:00 98.7 F 64 15 126/56 98 12/16/24 20:00 98.4 F 58 L 13 124/72 93 L 12/16/24 14:59 96.9 F 66 18 141/88 94 L 12/16/24 14:30 68 140/81 97 12/16/24 14:11 94 L 12/16/24 14:00 112 H 32 H 166/84 12/16/24 13:31 64 18 145/63 97 12/16/24 13:00 54 L 17 140/89 98 12/16/24 12:51 57 L 19 163/78 98 12/16/24 12:30 61 15 142/86 97 12/16/24 12:00 54 L 21 157/82 97 12/16/24 11:30 55 L 18 142/87 97 12/16/24 11:00 64 15 144/83 97 12/16/24 10:40 62 21 141/87 95 12/16/24 10:31 160/71 12/16/24 10:30 97 12/16/24 10:14 97.5 F 66 18 181/88 94 L 12/16/24 10:12 91 H 27 H 181/88 73 L Pain Assessment - Last Documented Pain Intensity 0 Intake and Output: Intake & Output 12/14/24 12/15/24 12/16/24 12/17/24 11:59 11:59 11:59 11:59 Intake Total 980 Balance 980 Weight 72.575 kg 68.6 kg Lab Results: Lab Results-Last 24 Hours 12/16/24 12/16/24 12/16/24 Range/Units 10:20 10:20 10:20 WBC (4.23-9.07) x10^3/uL RBC (4.63-6.08) x10^6/uL Hgb (13.7-17.5) g/dL Hct (40.1-51.0) % MCV (79.0-92.2) fL MCH (25.7-32.2) pg MCHC (32.3-36.5) g/dL RDW (11.6-14.4) % Plt Count (163-337) x10^3/uL MPV (9.4-12.4) fL Gran % (34.0-67.9) % Immature Gran % (Auto) (0.001-0.429) % Nucleat RBC Rel Count (0.00-0.2) % Eos # (Auto) (0.04-0.54) x10^3/uL Immature Gran # (Auto) (0.001-0.031) x10^3u/L Absolute Lymphs (auto) (1.32-3.57) x10^3/uL Absolute Monos (auto) (0.30-0.82) x10^3/uL Absolute Nucleated RBC (0.00-0.012) x10^3u/L Lymphocytes % (21.8-53.1) % Monocytes % (5.3-12.2) % Eosinophils % (0.8-7.0) % Basophils % (0.2-1.2) % Absolute Granulocytes (1.78-5.38) x10^3/uL Basophils # (0.01-0.08) x10^3/uL PT 11.3 (9.4-12.5) SECONDS INR 1.04 (0.8-3.0) APTT 30.9 (25.1-36.5) SECONDS D-Dimer (0.0-0.50) mg/L Sodium (135-145) mmol/L Potassium (3.5-5.1) mmol/L Chloride (98-107) mmol/L Carbon Dioxide (22-30) mmol/L Anion Gap (5-15) MEQ/L BUN (9-20) mg/dL Creatinine (0.66-1.25) mg/dL Estimated GFR ML/MIN Glucose (74-106) mg/dL Hemoglobin A1c 5.36 (4.5-6.0) % Calcium (8.4-10.2) mg/dL Total Bilirubin (0.2-1.3) mg/dL AST (17-59) U/L ALT (0-50) U/L Alkaline Phosphatase (38-126) U/L Troponin I (0.000-0.033) ng/mL NT-Pro-B Natriuret Pep (<300) pg/mL Serum Total Protein (6.3-8.2) g/dL Albumin (3.5-5.0) g/dL Triglycerides 80 (30-150) mg/dL Cholesterol 127 (50-200) mg/dL LDL Cholesterol 60 (30-100) mg/dL HDL Cholesterol 40 (40-60) mg/dL Heart Disease Risk Ratio 3.0 TSH 3rd Generation (0.470-4.680) mIU/L Urine Color (Yellow) Urine Appearance (Clear) Urine pH (4.6-8.0) Ur Specific [place] (1.005-1.030) Urine Protein (Negative) Urine Glucose (UA) (Negative) mg/dL Urine Ketones (Negative) Urine Blood (Negative) Urine Nitrite (Negative) Urine Bilirubin (Negative) Urine Urobilinogen (0.2) mg/dL Ur Leukocyte Esterase (Negative) U Hyaline Cast (Auto) (0-2) /LPF Urine Microscopic RBC (0-5) /HPF Urine Microscopic WBC (0-5) /HPF Ur Epithelial Cells (None Seen) /HPF Urine Bacteria (None Seen) /HPF Urine Culture Reflexed (NO) Urine Opiates Level (NEGATIVE) Ur Methadone (NEGATIVE) Urine Barbiturates (NEGATIVE) Ur Phencyclidine (PCP) (NEGATIVE) Urine Amphetamine (NEGATIVE) U Benzodiazepine Level (NEGATIVE) Urine Cocaine (NEGATIVE) Urine Marijuana (THC) (NEGATIVE) 12/16/24 12/16/24 12/16/24 Range/Units 10:20 10:27 10:27 WBC 7.0 (4.23-9.07) x10^3/uL RBC 4.74 (4.63-6.08) x10^6/uL Hgb 13.9 (13.7-17.5) g/dL Hct 42.6 (40.1-51.0) % MCV 89.9 (79.0-92.2) fL MCH 29.3 (25.7-32.2) pg MCHC 32.6 (32.3-36.5) g/dL RDW 13.4 (11.6-14.4) % Plt Count 280 (163-337) x10^3/uL MPV 9.8 (9.4-12.4) fL Gran % 67.7 (34.0-67.9) % Immature Gran % (Auto) 0.3 (0.001-0.429) % Nucleat RBC Rel Count 0.0 (0.00-0.2) % Eos # (Auto) 0.07 (0.04-0.54) x10^3/uL Immature Gran # (Auto) 0.02 (0.001-0.031) x10^3u/L Absolute Lymphs (auto) 1.56 (1.32-3.57) x10^3/uL Absolute Monos (auto) 0.53 (0.30-0.82) x10^3/uL Absolute Nucleated RBC 0.00 (0.00-0.012) x10^3u/L Lymphocytes % 22.2 (21.8-53.1) % Monocytes % 7.5 (5.3-12.2) % Eosinophils % 1.0 (0.8-7.0) % Basophils % 1.3 H (0.2-1.2) % Absolute Granulocytes 4.77 (1.78-5.38) x10^3/uL Basophils # 0.09 H (0.01-0.08) x10^3/uL PT (9.4-12.5) SECONDS INR (0.8-3.0) APTT (25.1-36.5) SECONDS D-Dimer (0.0-0.50) mg/L Sodium 139 (135-145) mmol/L Potassium 3.9 (3.5-5.1) mmol/L Chloride 105 (98-107) mmol/L Carbon Dioxide 23 (22-30) mmol/L Anion Gap 15.7 H (5-15) MEQ/L BUN 16 (9-20) mg/dL Creatinine 0.98 (0.66-1.25) mg/dL Estimated GFR 84.0 ML/MIN Glucose 111 H (74-106) mg/dL Hemoglobin A1c (4.5-6.0) % Calcium 9.1 (8.4-10.2) mg/dL Total Bilirubin 0.80 (0.2-1.3) mg/dL AST 38 (17-59) U/L ALT 24 (0-50) U/L Alkaline Phosphatase 61 (38-126) U/L Troponin I (0.000-0.033) ng/mL NT-Pro-B Natriuret Pep 45.4 (<300) pg/mL Serum Total Protein 7.1 (6.3-8.2) g/dL Albumin 4.3 (3.5-5.0) g/dL Triglycerides (30-150) mg/dL Cholesterol (50-200) mg/dL LDL Cholesterol (30-100) mg/dL HDL Cholesterol (40-60) mg/dL Heart Disease Risk Ratio TSH 3rd Generation 2.600 (0.470-4.680) mIU/L Urine Color (Yellow) Urine Appearance (Clear) Urine pH (4.6-8.0) Ur Specific [place] (1.005-1.030) Urine Protein (Negative) Urine Glucose (UA) (Negative) mg/dL Urine Ketones (Negative) Urine Blood (Negative) Urine Nitrite (Negative) Urine Bilirubin (Negative) Urine Urobilinogen (0.2) mg/dL Ur Leukocyte Esterase (Negative) U Hyaline Cast (Auto) (0-2) /LPF Urine Microscopic RBC (0-5) /HPF Urine Microscopic WBC (0-5) /HPF Ur Epithelial Cells (None Seen) /HPF Urine Bacteria (None Seen) /HPF Urine Culture Reflexed (NO) Urine Opiates Level (NEGATIVE) Ur Methadone (NEGATIVE) Urine Barbiturates (NEGATIVE) Ur Phencyclidine (PCP) (NEGATIVE) Urine Amphetamine (NEGATIVE) U Benzodiazepine Level (NEGATIVE) Urine Cocaine (NEGATIVE) Urine Marijuana (THC) (NEGATIVE) 12/16/24 12/16/24 12/16/24 Range/Units 10:27 10:27 10:37 WBC (4.23-9.07) x10^3/uL RBC (4.63-6.08) x10^6/uL Hgb (13.7-17.5) g/dL Hct (40.1-51.0) % MCV (79.0-92.2) fL MCH (25.7-32.2) pg MCHC (32.3-36.5) g/dL RDW (11.6-14.4) % Plt Count (163-337) x10^3/uL MPV (9.4-12.4) fL Gran % (34.0-67.9) % Immature Gran % (Auto) (0.001-0.429) % Nucleat RBC Rel Count (0.00-0.2) % Eos # (Auto) (0.04-0.54) x10^3/uL Immature Gran # (Auto) (0.001-0.031) x10^3u/L Absolute Lymphs (auto) (1.32-3.57) x10^3/uL Absolute Monos (auto) (0.30-0.82) x10^3/uL Absolute Nucleated RBC (0.00-0.012) x10^3u/L Lymphocytes % (21.8-53.1) % Monocytes % (5.3-12.2) % Eosinophils % (0.8-7.0) % Basophils % (0.2-1.2) % Absolute Granulocytes (1.78-5.38) x10^3/uL Basophils # (0.01-0.08) x10^3/uL PT (9.4-12.5) SECONDS INR (0.8-3.0) APTT (25.1-36.5) SECONDS D-Dimer 0.82 H* (0.0-0.50) mg/L Sodium (135-145) mmol/L Potassium (3.5-5.1) mmol/L Chloride (98-107) mmol/L Carbon Dioxide (22-30) mmol/L Anion Gap (5-15) MEQ/L BUN (9-20) mg/dL Creatinine (0.66-1.25) mg/dL Estimated GFR ML/MIN Glucose (74-106) mg/dL Hemoglobin A1c (4.5-6.0) % Calcium (8.4-10.2) mg/dL Total Bilirubin (0.2-1.3) mg/dL AST (17-59) U/L ALT (0-50) U/L Alkaline Phosphatase (38-126) U/L Troponin I < 0.012 (0.000-0.033) ng/mL NT-Pro-B Natriuret Pep (<300) pg/mL Serum Total Protein (6.3-8.2) g/dL Albumin (3.5-5.0) g/dL Triglycerides (30-150) mg/dL Cholesterol (50-200) mg/dL LDL Cholesterol (30-100) mg/dL HDL Cholesterol (40-60) mg/dL Heart Disease Risk Ratio TSH 3rd Generation (0.470-4.680) mIU/L Urine Color Yellow (Yellow) Urine Appearance Clear (Clear) Urine pH 7.5 (4.6-8.0) Ur Specific [place] 1.015 (1.005-1.030) Urine Protein Negative (Negative) Urine Glucose (UA) Negative (Negative) mg/dL Urine Ketones Negative (Negative) Urine Blood Negative (Negative) Urine Nitrite Negative (Negative) Urine Bilirubin Negative (Negative) Urine Urobilinogen 0.2 (0.2) mg/dL Ur Leukocyte Esterase Trace A (Negative) U Hyaline Cast (Auto) NONE SEEN (0-2) /LPF Urine Microscopic RBC 3-5 (0-5) /HPF Urine Microscopic WBC 0-2 (0-5) /HPF Ur Epithelial Cells None Seen (None Seen) /HPF Urine Bacteria None Seen (None Seen) /HPF Urine Culture Reflexed NO (NO) Urine Opiates Level (NEGATIVE) Ur Methadone (NEGATIVE) Urine Barbiturates (NEGATIVE) Ur Phencyclidine (PCP) (NEGATIVE) Urine Amphetamine (NEGATIVE) U Benzodiazepine Level (NEGATIVE) Urine Cocaine (NEGATIVE) Urine Marijuana (THC) (NEGATIVE) 12/16/24 12/16/24 12/16/24 Range/Units 10:37 14:15 18:09 WBC (4.23-9.07) x10^3/uL RBC (4.63-6.08) x10^6/uL Hgb (13.7-17.5) g/dL Hct (40.1-51.0) % MCV (79.0-92.2) fL MCH (25.7-32.2) pg MCHC (32.3-36.5) g/dL RDW (11.6-14.4) % Plt Count (163-337) x10^3/uL MPV (9.4-12.4) fL Gran % (34.0-67.9) % Immature Gran % (Auto) (0.001-0.429) % Nucleat RBC Rel Count (0.00-0.2) % Eos # (Auto) (0.04-0.54) x10^3/uL Immature Gran # (Auto) (0.001-0.031) x10^3u/L Absolute Lymphs (auto) (1.32-3.57) x10^3/uL Absolute Monos (auto) (0.30-0.82) x10^3/uL Absolute Nucleated RBC (0.00-0.012) x10^3u/L Lymphocytes % (21.8-53.1) % Monocytes % (5.3-12.2) % Eosinophils % (0.8-7.0) % Basophils % (0.2-1.2) % Absolute Granulocytes (1.78-5.38) x10^3/uL Basophils # (0.01-0.08) x10^3/uL PT (9.4-12.5) SECONDS INR (0.8-3.0) APTT (25.1-36.5) SECONDS D-Dimer (0.0-0.50) mg/L Sodium (135-145) mmol/L Potassium (3.5-5.1) mmol/L Chloride (98-107) mmol/L Carbon Dioxide (22-30) mmol/L Anion Gap (5-15) MEQ/L BUN (9-20) mg/dL Creatinine (0.66-1.25) mg/dL Estimated GFR ML/MIN Glucose (74-106) mg/dL Hemoglobin A1c (4.5-6.0) % Calcium (8.4-10.2) mg/dL Total Bilirubin (0.2-1.3) mg/dL AST (17-59) U/L ALT (0-50) U/L Alkaline Phosphatase (38-126) U/L Troponin I < 0.012 < 0.012 (0.000-0.033) ng/mL NT-Pro-B Natriuret Pep (<300) pg/mL Serum Total Protein (6.3-8.2) g/dL Albumin (3.5-5.0) g/dL Triglycerides (30-150) mg/dL Cholesterol (50-200) mg/dL LDL Cholesterol (30-100) mg/dL HDL Cholesterol (40-60) mg/dL Heart Disease Risk Ratio TSH 3rd Generation (0.470-4.680) mIU/L Urine Color (Yellow) Urine Appearance (Clear) Urine pH (4.6-8.0) Ur Specific [place] (1.005-1.030) Urine Protein (Negative) Urine Glucose (UA) (Negative) mg/dL Urine Ketones (Negative) Urine Blood (Negative) Urine Nitrite (Negative) Urine Bilirubin (Negative) Urine Urobilinogen (0.2) mg/dL Ur Leukocyte Esterase (Negative) U Hyaline Cast (Auto) (0-2) /LPF Urine Microscopic RBC (0-5) /HPF Urine Microscopic WBC (0-5) /HPF Ur Epithelial Cells (None Seen) /HPF Urine Bacteria (None Seen) /HPF Urine Culture Reflexed (NO) Urine Opiates Level NEGATIVE (NEGATIVE) Ur Methadone NEGATIVE (NEGATIVE) Urine Barbiturates NEGATIVE (NEGATIVE) Ur Phencyclidine (PCP) NEGATIVE (NEGATIVE) Urine Amphetamine NEGATIVE (NEGATIVE) U Benzodiazepine Level NEGATIVE (NEGATIVE) Urine Cocaine NEGATIVE (NEGATIVE) Urine Marijuana (THC) POSITIVE A (NEGATIVE) 12/17/24 Range/Units 04:56 WBC 6.9 (4.23-9.07) x10^3/uL RBC 4.65 (4.63-6.08) x10^6/uL Hgb 13.8 (13.7-17.5) g/dL Hct 40.8 (40.1-51.0) % MCV 87.7 (79.0-92.2) fL MCH 29.7 (25.7-32.2) pg MCHC 33.8 (32.3-36.5) g/dL RDW 13.6 (11.6-14.4) % Plt Count 292 (163-337) x10^3/uL MPV 10.4 (9.4-12.4) fL Gran % 57.5 (34.0-67.9) % Immature Gran % (Auto) 0.1 (0.001-0.429) % Nucleat RBC Rel Count 0.0 (0.00-0.2) % Eos # (Auto) 0.18 (0.04-0.54) x10^3/uL Immature Gran # (Auto) 0.01 (0.001-0.031) x10^3u/L Absolute Lymphs (auto) 2.11 (1.32-3.57) x10^3/uL Absolute Monos (auto) 0.55 (0.30-0.82) x10^3/uL Absolute Nucleated RBC 0.00 (0.00-0.012) x10^3u/L Lymphocytes % 30.8 (21.8-53.1) % Monocytes % 8.0 (5.3-12.2) % Eosinophils % 2.6 (0.8-7.0) % Basophils % 1.0 (0.2-1.2) % Absolute Granulocytes 3.93 (1.78-5.38) x10^3/uL Basophils # 0.07 (0.01-0.08) x10^3/uL PT (9.4-12.5) SECONDS INR (0.8-3.0) APTT (25.1-36.5) SECONDS D-Dimer (0.0-0.50) mg/L Sodium (135-145) mmol/L Potassium (3.5-5.1) mmol/L Chloride (98-107) mmol/L Carbon Dioxide (22-30) mmol/L Anion Gap (5-15) MEQ/L BUN (9-20) mg/dL Creatinine (0.66-1.25) mg/dL Estimated GFR ML/MIN Glucose (74-106) mg/dL Hemoglobin A1c (4.5-6.0) % Calcium (8.4-10.2) mg/dL Total Bilirubin (0.2-1.3) mg/dL AST (17-59) U/L ALT (0-50) U/L Alkaline Phosphatase (38-126) U/L Troponin I (0.000-0.033) ng/mL NT-Pro-B Natriuret Pep (<300) pg/mL Serum Total Protein (6.3-8.2) g/dL Albumin (3.5-5.0) g/dL Triglycerides (30-150) mg/dL Cholesterol (50-200) mg/dL LDL Cholesterol (30-100) mg/dL HDL Cholesterol (40-60) mg/dL Heart Disease Risk Ratio TSH 3rd Generation (0.470-4.680) mIU/L Urine Color (Yellow) Urine Appearance (Clear) Urine pH (4.6-8.0) Ur Specific [place] (1.005-1.030) Urine Protein (Negative) Urine Glucose (UA) (Negative) mg/dL Urine Ketones (Negative) Urine Blood (Negative) Urine Nitrite (Negative) Urine Bilirubin (Negative) Urine Urobilinogen (0.2) mg/dL Ur Leukocyte Esterase (Negative) U Hyaline Cast (Auto) (0-2) /LPF Urine Microscopic RBC (0-5) /HPF Urine Microscopic WBC (0-5) /HPF Ur Epithelial Cells (None Seen) /HPF Urine Bacteria (None Seen) /HPF Urine Culture Reflexed (NO) Urine Opiates Level (NEGATIVE) Ur Methadone (NEGATIVE) Urine Barbiturates (NEGATIVE) Ur Phencyclidine (PCP) (NEGATIVE) Urine Amphetamine (NEGATIVE) U Benzodiazepine Level (NEGATIVE) Urine Cocaine (NEGATIVE) Urine Marijuana (THC) (NEGATIVE) Radiology Exams: Radiology Procedures Category Date Time Status CHEST WITH CONTRAST [CT] Stat Exams 12/16/24 11:48 Completed ECHO W/2D AND DOPPLER [US] Routine Exams 12/16/24 15:35 Taken HEAD WITHOUT CONTRAST [CT] Stat Exams 12/16/24 10:22 Completed MRA BRAIN WITHOUT CONTRAST [MRI] Stat Exams 12/17/24 08:00 Ordered MRA NECK WITH CONTRAST [MRI] Stat Exams 12/17/24 08:00 Ordered MRI BRAIN W/O CONTRAST [MRI] Stat Exams 12/17/24 08:00 Ordered Medications: Medications Generic Name Dose Route Start Last Admin Trade Name Freq PRN Reason Stop Dose Admin Acetaminophen 650 mg 12/16/24 16:45 Acetaminophen 325 Mg Tablet PO 01/15/25 16:44 Q4H PRN PRN PAIN, FEVER, HEADACHE Aspirin 81 mg 12/17/24 10:00 Aspirin 81 Mg Tablet.Ec PO 01/16/25 09:59 DAILY TOD Finasteride 5 mg 12/16/24 22:00 12/16/24 22:52 Finasteride 5 Mg Tablet PO 01/15/25 21:59 5 mg HS TOD Administration Nicotine 21 mg 12/16/24 16:45 12/16/24 17:31 Nicotine 21 Mg/Patch Patch TOP 01/15/25 16:44 Not Given Q24H10 TOD Ondansetron HCl 4 mg 12/16/24 16:45 Ondansetron Hcl 4 Mg/2 Ml Vial IV 01/15/25 16:44 Q6H PRN PRN NAUSEA/VOMITING Simvastatin 40 mg 12/16/24 18:00 12/16/24 17:44 Simvastatin 20 Mg Tablet PO 01/15/25 17:59 40 mg DAILY TOD Administration Tamsulosin HCl 0.4 mg 12/16/24 22:00 12/16/24 22:52 Tamsulosin Hcl 0.4 Mg Cap PO 01/15/25 21:59 0.4 mg HS TOD Administration Discontinued Medications Generic Name Dose Route Start Last Admin Trade Name Freq PRN Reason Stop Dose Admin Aspirin 325 mg 12/16/24 15:34 12/16/24 16:05 Aspirin 325 Mg Tablet.Ec PO 12/16/24 15:35 325 mg STAT ONE Administration Ketorolac Tromethamine 30 mg 12/16/24 13:57 12/16/24 14:10 Ketorolac Tromethamine 30 Mg/Ml Inj IV 12/16/24 13:58 Not Given STAT ONE Prochlorperazine Edisylate 10 mg 12/16/24 13:57 12/16/24 14:10 Prochlorperazine Edisylate 10 Mg/2 Ml Vial IV 12/16/24 13:58 10 mg STAT ONE Administration Prochlorperazine Edisylate Confirm 12/16/24 14:09 Prochlorperazine Edisylate 10 Mg/2 Ml Vial Administered 12/16/24 14:10 Dose 10 mg .ROUTE .STK-MED ONE Assessment/Plan (1) Near syncope Current Visit: Yes Status: Acute Assessment & Plan: -CT head reviewed and showed a 5 mm area of hypoattenuation in the right basal ganglia -Neurology evaluated and interpreted findings as most consistent with a chronic infarct, not acute ischemia -Patients symptoms (headache, dizziness) resolved; no current focal deficits -Continue neurologic monitoring; no thrombolytics indicated -Continue aspirin 81 mg PO daily for secondary stroke prevention/atrovastatin -Proceed with MRI brain to further characterize the lesion and evaluate for small vessel disease -MRA brain (without contrast) and MRA neck (with contrast) pending to assess for vascular stenosis or other pathology -Lipid, A1c -echo -orthostatic vitals -tele (2) Elevated d-dimer Current Visit: Yes Status: Acute Assessment & Plan: -CTA chest negative for embolism -No further workup indicated unless new symptoms emerge Code(s): R79.89 - OTHER SPECIFIED ABNORMAL FINDINGS OF BLOOD CHEMISTRY (3) BPH (benign prostatic hyperplasia) Current Visit: Yes Status: Acute Assessment & Plan: -continue home meds Code(s): N40.0 - BENIGN PROSTATIC HYPERPLASIA WITHOUT LOWER URINRY TRACT SYMP (4) HLD (hyperlipidemia) Current Visit: Yes Status: Acute Assessment & Plan: -Atorvastatin 80mg Code(s): E78.5 - HYPERLIPIDEMIA, UNSPECIFIED (5) Tobacco abuse Current Visit: Yes Status: Acute Assessment & Plan: -advised cessation -nicotine patch Code(s): Z72.0 - TOBACCO USE (6) Dizziness Current Visit: Yes Status: Acute Assessment & Plan: -see near syncope Code(s): R42 - DIZZINESS AND GIDDINESS (7) Acute headache Current Visit: Yes Status: Acute Assessment & Plan: -Resolved Code(s): R51.9 - HEADACHE, UNSPECIFIED (8) Hypertension Current Visit: Yes Status: Acute Assessment & Plan: -Allow for permissive HTN SBP up to 253139 mmHg DBP >120 -Pt states he was taken off BP meds due to hypotensive episodes VTE: ASA/SCD Dispo: 1-2 days Code status: full (2) Elevated d-dimer Current Visit: Yes Status: Acute Code(s): R79.89 - OTHER SPECIFIED ABNORMAL FINDINGS OF BLOOD CHEMISTRY (3) BPH (benign prostatic hyperplasia) Current Visit: Yes Status: Acute Code(s): N40.0 - BENIGN PROSTATIC HYPERPLASIA WITHOUT LOWER URINRY TRACT SYMP (4) HLD (hyperlipidemia) Current Visit: Yes Status: Acute Code(s): E78.5 - HYPERLIPIDEMIA, UNSPECIFIED (5) Tobacco abuse Current Visit: Yes Status: Acute Code(s): Z72.0 - TOBACCO USE (6) Dizziness Current Visit: Yes Status: Acute Code(s): R42 - DIZZINESS AND GIDDINESS (7) Acute headache Current Visit: Yes Status: Acute Code(s): R51.9 - HEADACHE, UNSPECIFIED (8) Hypertension Current Visit: Yes Status: Acute Code(s): I10 - ESSENTIAL (PRIMARY) HYPERTENSION
[2024-12-17 05:20] LABS: ANION GAP 14.4 MEQ/L (5-15); BILIRUBIN,TOTAL 0.6 mg/dL (0.2-1.3); Calcium 9.3 mg/dL (8.4-10.2); Creatinine 1 0.97 mg/dL (0.66-1.25); Potassium 4.2 mmol/L (3.5-5.1); Total Protein 6.7 g/dL (6.3-8.2)
[2024-12-17 08:08] VITALS: PULSE 64; O2SAT 94
[2024-12-17] MEDS: ECOTRIN 81 MG PO SCH (10:02)
[2024-12-17 11:13] VITALS: BP 174/82; TEMP 97.8
--- NOTE | 2024-12-17 13:32 | XRAY ---
Indication: Abnormal CT head. Dizziness. Sagittal, coronal, and axial MRI brain performed using T1, T2, FLAIR, diffusion, and ADC sequences. Comparison: September 05, 2015 Age-appropriate global atrophy. Basal ganglia again demonstrates incidental minimal prominent [place] spaces bilaterally. No acute intracranial hemorrhage, abnormal extra-axial fluid collection, or mass effect. Diffusion images negative for restricted signal. Fourth ventricle is midline without hydrocephalus. 7/8 cranial nerve complex bilaterally symmetric. Normal flow void signal within the major intracerebral circulation. Normal appearing craniocervical junction and sella turcica. Visualized paranasal sinuses are clear. Impression: Atrophy within normal limits. Continued negative MRI brain without contrast exam.
--- NOTE | 2024-12-17 13:52 | XRAY ---
Indication: Dizziness. Abnormal CT head. Multi-slab 3-D peet-ad-cymleh MRA kake of [place] was performed. Comparison: September 05, 2015 Distal internal carotid arteries are again bilaterally symmetric without focal stenosis, obstruction, or vascular malformation. Continued normal carotid terminus with normal branching A1 and M1 segments bilaterally. Posterior circulation demonstrates normal MRA appearance of the basilar artery, basilar tip, left/right posterior cerebral , and left/right superior cerebellar arteries. Impression: Continued negative MRA kake of Ca.
--- NOTE | 2024-12-17 14:15 | PCM.DS ---
Discharge Summary Date of Admission: 12/16/24 14:58 Date of Discharge: 12/17/24 Admitting Physician: JANELLE LEDEZMA MD Consults: Consults on Case 12/16/24 15:28 Consult Neurology ROUTINE Primary Care Provider: ELY,LENNOX Allergies Allergies alcohol Allergy (Mild, Verified 12/16/24 10:05) black out- pancreatitis- very ill codeine Allergy (Verified 12/16/24 10:05) itching, swelling, very irritated NSAIDS (Non-Steroidal Anti-Inflamma Allergy (Verified 12/16/24 14:11) Hospital Summary - Hospital Course Hospital Course: Mr. 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 He described a sudden onset of headache followed by intense lightheadedness and a sense of impending loss of consciousness. At a nearby pharmacy, his blood pressure was recorded at 180 mmHg systolic. He denied chest pain, shortness of breath, diaphoresis, or focal neurologic symptoms. The headache resolved following IV Compazine administration in the ED, and the patient was otherwise asymptomatic at the time of reevaluation.On presentation, he was hypertensive but hemodynamically stable. Neurologic exam was non-focal. CT head revealed a 5 mm hypoattenuating lesion in the right basal ganglia, which was interpreted by Neurology as a chronic infarct rather than acute ischemia. No thrombolytics were indicated. Stroke workup was initiated, including MRI brain, MRA brain (non- contrast), and MRA neck (with contrast), which did not show any acute ischemic changes or significant vascular stenosis. EKG demonstrated normal sinus rhythm with no ischemic changes. A D-dimer was elevated, prompting CTA chest to rule out pulmonary embolism; this was negative, with only chronic changes noted. During admission, the patient remained stable with resolution of headache and dizziness. Orthostatic vitals were obtained and did not suggest significant postural hypotension. An echocardiogram was ordered to evaluate for cardiac sources of embolism and pending. Neurology reconsulted - advised continuation of Atorvastatin for secondary stroke prevention and control of blood pressure and possible ENT follow up if dizziness persists. The patient was advised on lifestyle modifications including smoking cessation, and nicotine patch therapy was initiated. Amlodipine initiated for blood pressure. Patient to maintain BP log to take to follow up appt with PCP. I spent 35 minutes [id number] with the patient on the day of discharge performing discharge exam, discussing hospital stay and discharge instructions with patient and caregivers, preparation of discharge records, prescriptions & referral forms and addressing any questions/concerns the patient had as documented above. - Vitals & Intake/Output Vital Signs: Vital Signs Temperature 97.8 F 12/17/24 11:12 Pulse Rate 64 12/17/24 11:12 Respiratory Rate 16 12/17/24 11:12 Blood Pressure 174/82 12/17/24 11:12 O2 Sat by Pulse Oximetry 94 L 12/17/24 11:12 Intake & Output: Intake & Output 12/15/24 12/16/24 12/17/24 12/18/24 11:59 11:59 11:59 11:59 Intake Total 1760 Balance 1760 Weight 72.575 kg 68.4 kg - Lab Result Diagrams: 12/17/24 04:56 12/17/24 04:56 Lab Results-Last 24 Hrs: Lab Results-Last 24 Hours 12/16/24 12/16/24 12/16/24 Range/Units 10:20 10:20 10:20 WBC (4.23-9.07) x10^3/uL RBC (4.63-6.08) x10^6/uL Hgb (13.7-17.5) g/dL Hct (40.1-51.0) % MCV (79.0-92.2) fL MCH (25.7-32.2) pg MCHC (32.3-36.5) g/dL RDW (11.6-14.4) % Plt Count (163-337) x10^3/uL MPV (9.4-12.4) fL Gran % (34.0-67.9) % Immature Gran % (Auto) (0.001-0.429) % Nucleat RBC Rel Count (0.00-0.2) % Eos # (Auto) (0.04-0.54) x10^3/uL Immature Gran # (Auto) (0.001-0.031) x10^3u/L Absolute Lymphs (auto) (1.32-3.57) x10^3/uL Absolute Monos (auto) (0.30-0.82) x10^3/uL Absolute Nucleated RBC (0.00-0.012) x10^3u/L Lymphocytes % (21.8-53.1) % Monocytes % (5.3-12.2) % Eosinophils % (0.8-7.0) % Basophils % (0.2-1.2) % Absolute Granulocytes (1.78-5.38) x10^3/uL Basophils # (0.01-0.08) x10^3/uL PT 11.3 (9.4-12.5) SECONDS INR 1.04 (0.8-3.0) APTT 30.9 (25.1-36.5) SECONDS Sodium (135-145) mmol/L Potassium (3.5-5.1) mmol/L Chloride (98-107) mmol/L Carbon Dioxide (22-30) mmol/L Anion Gap (5-15) MEQ/L BUN (9-20) mg/dL Creatinine (0.66-1.25) mg/dL Estimated GFR ML/MIN Glucose (74-106) mg/dL Hemoglobin A1c 5.36 (4.5-6.0) % Calcium (8.4-10.2) mg/dL Total Bilirubin (0.2-1.3) mg/dL AST (17-59) U/L ALT (0-50) U/L Alkaline Phosphatase (38-126) U/L Troponin I (0.000-0.033) ng/mL Serum Total Protein (6.3-8.2) g/dL Albumin (3.5-5.0) g/dL Triglycerides 80 (30-150) mg/dL Cholesterol 127 (50-200) mg/dL LDL Cholesterol 60 (30-100) mg/dL HDL Cholesterol 40 (40-60) mg/dL Heart Disease Risk Ratio 3.0 TSH 3rd Generation (0.470-4.680) mIU/L 12/16/24 12/16/24 12/16/24 Range/Units 10:20 14:15 18:09 WBC (4.23-9.07) x10^3/uL RBC (4.63-6.08) x10^6/uL Hgb (13.7-17.5) g/dL Hct (40.1-51.0) % MCV (79.0-92.2) fL MCH (25.7-32.2) pg MCHC (32.3-36.5) g/dL RDW (11.6-14.4) % Plt Count (163-337) x10^3/uL MPV (9.4-12.4) fL Gran % (34.0-67.9) % Immature Gran % (Auto) (0.001-0.429) % Nucleat RBC Rel Count (0.00-0.2) % Eos # (Auto) (0.04-0.54) x10^3/uL Immature Gran # (Auto) (0.001-0.031) x10^3u/L Absolute Lymphs (auto) (1.32-3.57) x10^3/uL Absolute Monos (auto) (0.30-0.82) x10^3/uL Absolute Nucleated RBC (0.00-0.012) x10^3u/L Lymphocytes % (21.8-53.1) % Monocytes % (5.3-12.2) % Eosinophils % (0.8-7.0) % Basophils % (0.2-1.2) % Absolute Granulocytes (1.78-5.38) x10^3/uL Basophils # (0.01-0.08) x10^3/uL PT (9.4-12.5) SECONDS INR (0.8-3.0) APTT (25.1-36.5) SECONDS Sodium (135-145) mmol/L Potassium (3.5-5.1) mmol/L Chloride (98-107) mmol/L Carbon Dioxide (22-30) mmol/L Anion Gap (5-15) MEQ/L BUN (9-20) mg/dL Creatinine (0.66-1.25) mg/dL Estimated GFR ML/MIN Glucose (74-106) mg/dL Hemoglobin A1c (4.5-6.0) % Calcium (8.4-10.2) mg/dL Total Bilirubin (0.2-1.3) mg/dL AST (17-59) U/L ALT (0-50) U/L Alkaline Phosphatase (38-126) U/L Troponin I < 0.012 < 0.012 (0.000-0.033) ng/mL Serum Total Protein (6.3-8.2) g/dL Albumin (3.5-5.0) g/dL Triglycerides (30-150) mg/dL Cholesterol (50-200) mg/dL LDL Cholesterol (30-100) mg/dL HDL Cholesterol (40-60) mg/dL Heart Disease Risk Ratio TSH 3rd Generation 2.600 (0.470-4.680) mIU/L 12/17/24 12/17/24 Range/Units 04:56 04:56 WBC 6.9 (4.23-9.07) x10^3/uL RBC 4.65 (4.63-6.08) x10^6/uL Hgb 13.8 (13.7-17.5) g/dL Hct 40.8 (40.1-51.0) % MCV 87.7 (79.0-92.2) fL MCH 29.7 (25.7-32.2) pg MCHC 33.8 (32.3-36.5) g/dL RDW 13.6 (11.6-14.4) % Plt Count 292 (163-337) x10^3/uL MPV 10.4 (9.4-12.4) fL Gran % 57.5 (34.0-67.9) % Immature Gran % (Auto) 0.1 (0.001-0.429) % Nucleat RBC Rel Count 0.0 (0.00-0.2) % Eos # (Auto) 0.18 (0.04-0.54) x10^3/uL Immature Gran # (Auto) 0.01 (0.001-0.031) x10^3u/L Absolute Lymphs (auto) 2.11 (1.32-3.57) x10^3/uL Absolute Monos (auto) 0.55 (0.30-0.82) x10^3/uL Absolute Nucleated RBC 0.00 (0.00-0.012) x10^3u/L Lymphocytes % 30.8 (21.8-53.1) % Monocytes % 8.0 (5.3-12.2) % Eosinophils % 2.6 (0.8-7.0) % Basophils % 1.0 (0.2-1.2) % Absolute Granulocytes 3.93 (1.78-5.38) x10^3/uL Basophils # 0.07 (0.01-0.08) x10^3/uL PT (9.4-12.5) SECONDS INR (0.8-3.0) APTT (25.1-36.5) SECONDS Sodium 138 (135-145) mmol/L Potassium 4.2 (3.5-5.1) mmol/L Chloride 106 (98-107) mmol/L Carbon Dioxide 22 (22-30) mmol/L Anion Gap 14.4 (5-15) MEQ/L BUN 16 (9-20) mg/dL Creatinine 0.97 (0.66-1.25) mg/dL Estimated GFR 85.0 ML/MIN Glucose 89 (74-106) mg/dL Hemoglobin A1c (4.5-6.0) % Calcium 9.3 (8.4-10.2) mg/dL Total Bilirubin 0.60 (0.2-1.3) mg/dL AST 38 (17-59) U/L ALT 21 (0-50) U/L Alkaline Phosphatase 61 (38-126) U/L Troponin I (0.000-0.033) ng/mL Serum Total Protein 6.7 (6.3-8.2) g/dL Albumin 4.0 (3.5-5.0) g/dL Triglycerides (30-150) mg/dL Cholesterol (50-200) mg/dL LDL Cholesterol (30-100) mg/dL HDL Cholesterol (40-60) mg/dL Heart Disease Risk Ratio TSH 3rd Generation (0.470-4.680) mIU/L - Radiology Exams Ordered Rad Exams-Entire Visit: Radiology Procedures Category Date Time Status CHEST WITH CONTRAST [CT] Stat Exams 12/16/24 11:48 Completed ECHO W/2D AND DOPPLER [US] Routine Exams 12/16/24 15:35 Taken HEAD WITHOUT CONTRAST [CT] Stat Exams 12/16/24 10:22 Completed MRA BRAIN WITHOUT CONTRAST [MRI] Stat Exams 12/17/24 08:00 Completed MRA NECK WITH CONTRAST [MRI] Stat Exams 12/17/24 08:00 Taken MRI BRAIN W/O CONTRAST [MRI] Stat Exams 12/17/24 08:00 Completed Discharge Exam General Appearance: no apparent distress Neurologic Exam: alert, oriented x 3, cooperative Eye Exam: PERRL Ears, Nose, Throat Exam: normal ENT inspection Neck Exam: normal inspection Respiratory Exam: normal breath sounds, lungs clear Cardiovascular Exam: regular rate/rhythm, normal heart sounds Gastrointestinal/Abdomen Exam: soft, normal bowel sounds Male Genitalia Exam: deferred Rectal Exam: deferred Back Exam: normal inspection Extremity Exam: normal inspection Skin Exam: normal color Final Diagnosis/Problem List - Final Discharge Diagnosis/Problem (1) Near syncope Current Visit: Yes Status: Acute Assessment & Plan: -MRI/MRA brain negative -No evidence of ongoing arrhythmia, structural brain lesion, or acute ischemia. -CT head showed chronic basal ganglia infarct; no acute findings on MRI/MRA. -Orthostatic vitals were not diagnostic of significant postural hypotension. -Outpatient monitoring for recurrent symptoms. -Encourage hydration and avoid abrupt positional changes. -Refer to Neurology for outpatient evaluation of possible small vessel disease and cerebrovascular risk assessment. -Continue aspirin 81 mg daily and initiate high-intensity statin for secondary prevention. (2) Elevated d-dimer Current Visit: Yes Status: Acute Assessment & Plan: -CTA chest ruled out pulmonary embolism; no evidence of acute cardiopulmonary pathology. -No further acute workup needed. Code(s): R79.89 - OTHER SPECIFIED ABNORMAL FINDINGS OF BLOOD CHEMISTRY (3) BPH (benign prostatic hyperplasia) Current Visit: Yes Status: Acute Assessment & Plan: -resume home meds Code(s): N40.0 - BENIGN PROSTATIC HYPERPLASIA WITHOUT LOWER URINRY TRACT SYMP (4) HLD (hyperlipidemia) Current Visit: Yes Status: Acute Assessment & Plan: -Initiated or continued atorvastatin 80 mg daily for secondary stroke prevention. -Lipid panel obtained during admission; outpatient follow-up to assess efficacy and tolerance. -Reinforce adherence to low-fat, heart-healthy diet. -Recheck lipid panel in 68 weeks. Code(s): E78.5 - HYPERLIPIDEMIA, UNSPECIFIED (5) Tobacco abuse Current Visit: Yes Status: Acute Assessment & Plan: -Strongly advised smoking cessation. -Initiated nicotine patch therapy. -Encourage participation in structured cessation program (e.g., behavioral counseling, quitline). -Follow-up with PCP for ongoing support and medication adjustment (e.g., bupropion, varenicline if indicated). Code(s): Z72.0 - TOBACCO USE (6) Dizziness Current Visit: Yes Status: Acute Assessment & Plan: -Likely related to transient cerebrovascular insufficiency or labile blood pressure. -Symptoms resolved with supportive care. -Maintain adequate hydration. -Monitor for recurrenceif present, consider ambulatory cardiac monitoring (e.g., Holter or event monitor) and further autonomic testing. -Continue permissive hypertension approach in short term Code(s): R42 - DIZZINESS AND GIDDINESS (7) Acute headache Current Visit: Yes Status: Acute Assessment & Plan: -resolved Code(s): R51.9 - HEADACHE, UNSPECIFIED (8) Hypertension Current Visit: Yes Status: Acute Assessment & Plan: -Patient had not been taking antihypertensive medications for two years due to previously normal readings; presented with systolic BP in the 180s- now stable -Permissive hypertension allowed during acute stroke evaluation. -Outpatient blood pressure monitoring recommended, with home BP log. -Restart antihypertensive therapy cautiously in outpatient setting (e.g., amlodipine or losartan) after reassessment of baseline vitals and symptoms. -Reinforce DASH diet, sodium restriction, and lifestyle modifications. -Recommend close primary care follow-up within 1 week for blood pressure management. Code(s): I10 - ESSENTIAL (PRIMARY) HYPERTENSION - Discharge Discharge Date: 12/17/24 Disposition: Home, Self-Care Condition: Stable Prescriptions: New Amlodipine Besylate 5 mg [Norvasc 5 mg] 5 mg PO DAILY 30 Days #30 tablet Continue Tamsulosin HCl 0.4 mg [Flomax 0.4 MG] 0.4 mg PO HS Rosuvastatin Calcium 40 mg PO QHS Finasteride 5 mg [Proscar 5 MG] 5 mg PO 0700 Instructions: Near Fainting (DC) Additional Instructions: Appointment with Dr. Krause, neurology - [address] [place] [address], [place] [id number] They have placed him on a wait list and if they have a cancellation they will call. You are also able to call and see if they've had any cancellations Follow up with: KERRI KRAUSE MD [NON-STAFF PHY W/O PRIVILEGES, NEUROLOGY] - 05/04/25 8:30 am LENNOX GRAVES MD [Primary Care Provider, INTERNAL MEDICINE] - 12/20/24 2:00 pm Referral Note: [facility]
--- NOTE | 2024-12-17 14:22 | XRAY ---
Indication: Dizziness. Abnormal CT head. Contrast-enhanced MRA neck performed using 15 cc Dotarem contrast. Comparison: September 05, 2015 Visualized distal right common carotid artery and carotid bulb are unremarkable. Again mild arteriosclerotic disease in the proximal internal and external carotid arteries without critical stenosis/dissection. Visualized distal left common carotid artery, carotid bulb, and proximal external carotid arteries are normal and MRA appearance. There is now minimal arteriosclerotic disease in the proximal internal carotid artery without critical stenosis/obstruction. Visualized vertebral arteries are bilaterally symmetric without critical stenosis or obstruction. Impression: 1. 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 2. Continue normal MRA vertebral arteries.
== END 2024-12-17 17:03 | disposition home or self-care (01) ==
LOC: ED 10:04 → MED SURG 14:58
PROVIDERS: ADMIT Internal Medicine; ATTEND Internal Medicine
DX: R55 Syncope and collapse (principal); R79.89 Other specified abnormal findings of blood chemistry; N40.0 Benign prostatic hyperplasia without lower urinary tract symptoms; E78.5 Hyperlipidemia, unspecified; R42 Dizziness and giddiness; R51.9 Headache, unspecified; I10 Essential (primary) hypertension; F17.200 Nicotine dependence, unspecified, uncomplicated; R94.02 Abnormal brain scan; Z79.899 Other long term (current) drug therapy
CPT/HCPCS: 36415; 70450; 70544; 70548; 70551; 71260; 80053; 80061; 80307; 81001; 83036; 83721; 83880; 84443; 84484; 85025; 85379; 85610; 85730; 93306; 94760; 96374; 99285; Q3014; 93268; A9270-GY; G0378